=== PATIENT | male | born 1955 | race Caucasian/White ===

== ENCOUNTER 2018-09-17 09:15 | Inpatient (IN) | payer SELFPAY ==
[~2018-09-17] VITALS: Ht 182.9 cm; Wt 97.5 kg
[2018-09-17] VITALS (7 sets, daily range): BP systolic 102–120; BP diastolic 68–76
[2018-09-17] MEDS ORDERED: SODIUM CHLORIDE 0.9% 1000ML 1,000 ML IV STA (09:39)
[2018-09-17] MEDS ORDERED: METHYLPREDNISOLONE SOD SUCC 125 MG/2ML VIAL IV ONE (09:45)
[2018-09-17] MEDS ORDERED: ALBUTEROL/IPRATROPIUM 3 ML NEB NEB ONE (09:45)
[2018-09-17 10:02] LABS: BASOPHILS % 0.4 % (0.0-1.0); HEMOGLOBIN 11.9 g/dL (14.0-18.0); LYMPHOCYTES # (AUTO) 0.3 (1.0-3.2); LYMPHOCYTES % 3.6 % (18.0-39.1); MEAN CORPUSCULAR HEMOGLOBIN 36.4 pg (28-32); MEAN CORPUSCULAR HGB CONC 33.1 g/dL (31-35); MEAN CORPUSCULAR VOLUME 110.1 fL (81-99); MONOCYTES # (AUTO) 0.9 (0.2-0.8); MONOCYTES % 10.7 % (4.4-11.3); NEUTROPHILS # (AUTO) 7.1 (2.1-6.9); NEUTROPHILS % 84.8 % (38.7-80.0); PLATELET COUNT 101 x10e3/uL (140-360); RED BLOOD COUNT 3.27 x10e6/uL (4.3-5.7); RED CELL DISTRIBUTION WIDTH 14.1 % (11.7-14.4)
[2018-09-17 10:10] LABS: INR 1.08
[2018-09-17 10:11] LABS: PARTIAL THROMBOPLASTIN TIME 35.6 seconds (23.8-35.5)
[2018-09-17 10:23] LABS: ALBUMIN 2.8 g/dL (3.5-5.0); ALBUMIN/GLOBULIN RATIO 0.8 (0.8-2.0); CALCIUM 7.7 mg/dL (8.4-10.2); CREATININE, SERUM 1.31 mg/dL (0.72-1.25)
[2018-09-17 10:28] LABS: B-TYPE NATRIURETIC PEPTIDE2 2926.2 pg/mL (0-100)
[2018-09-17 10:31] LABS: CREATINE KINASE MB 4.8 ng/mL (0-5.0)
--- NOTE | 2018-09-17 10:35 | NUR ---
Elizabeth flores in ED - 09/17/18 at 1106 by EN ORDER FOR VLUID RESCUSITATION GIVEN BUT PT IN XRAY SO FLUID ON HOLD UNTIL HE IS BACK
--- NOTE | 2018-09-17 10:35 | NUR ---
ORDER FOR FLUID RESUSCITATION GIVEN BUT PT IN XRAY. WILL START WHEN HE IS BACK.
--- NOTE | 2018-09-17 10:40 | NUR ---
DR PALM CANCELLED FLUID RESUSCITATION DUE TO LEG EDEMA
--- NOTE | 2018-09-17 10:49 | NUR ---
ORDER FOR ECHO ORDERED
--- NOTE | 2018-09-17 10:55 | NUR ---
PT BACK FROM [facility] HERE TO PERFORM THE ECHOCARDIOGRAM.
[2018-09-17] MEDS ORDERED: AZITHROMYCIN 500MG/NS 250 ML 250 ML IV STA (11:09)
[2018-09-17] MEDS ORDERED: ACETAMINOPHEN 325 MG TAB PO ONE (11:15)
--- NOTE | 2018-09-17 11:21 | Diagnostic Imaging Report ---
Frontal and lateral views of the chest. HISTORY: Shortness of breath, trouble breathing, congestion COMPARISON: None available. DISCUSSION: Overlying monitoring leads. Lungs: Increased peribronchial interstitial markings, most notably of the central and lower lungs. No evidence of a consolidative pneumonia or pulmonary alveolar edema. Pleura: No pleural effusion or pneumothorax. Heart and mediastinum: The cardiomediastinal silhouette appears unremarkable. Bones: No acute osseous lesion. IMPRESSION: 1. Findings which can be seen in the setting of a nonspecific bronchitis. 2. No consolidative pneumonia. Signed by: Dr. Jose Maria Barrera D.O., M.M.M. on 09/17/2018 11:18 AM
[2018-09-17] MEDS: SODIUM CHLORIDE 0.9% 1000ML 1,000 ML IV SCH ×10 (11:45→15:26)
[2018-09-17] MEDS: CEFTRIAXONE SOD 1 GM/NS 50 ML 50 ML IV SCH (11:45)
[2018-09-17] MEDS ORDERED: AZITHROMYCIN 500MG/SOD CHL 0.9% 250ML BAG IV SCH (12:00)
[2018-09-17] MEDS ORDERED: ASPIRIN 81 MG CHEW TAB PO ONE (12:00)
[2018-09-17] MEDS: NICOTINE 21 MG/EA PATCH TOP SCH (12:15)
[2018-09-17] MEDS: OSELTAMIVIR PHOSPHATE 75 MG CAP PO SCH ×2 (12:15→20:55)
--- OUTSIDE RECORDS SUMMARY | 2018-09-17 12:17 | XMS REPORT ---
Author Author [facility] Address Unknown Phone Unavailable Care Team Providers Care Tax Services Manager Name Role Phone Zan PALM Unavailable Unavailable Problems This patient has no known problems. Allergies, Adverse Reactions, Alerts This patient has no known allergies or adverse reactions. Medications This patient has no known medications. Results Test Description Test Time Test Comments Text Results Atomic Results Result Comments CHEST 2 VIEWS 2018-09-17 11:16:00 [place] [id number] Patient Name: SHAN SANTOS MR #: [id number] : 1955 Age/Sex: 63/M Req #: [id number] Adm Physician: Ordered by: DAMIR PALM MD Report #: [id number] Location: ER Room/Bed: Procedure: [id number] DX/CHEST 2 VIEWS Exam Date: 09/17/18 Exam Time: 1040 REPORT STATUS: Signed Frontal and lateral views of the chest. HISTORY: Shor tness of breath, trouble breathing, congestion COMPARISON: None available. DISCUSSION: Overlying monitoring leads. Lungs: Increased peribronchial interstitial markings, most notably of the central and lower lungs. No evidence of a consolidative pneumonia or pulmonary alveolar edema. Pleura: No pleural effusion or pneumothorax. Heart and mediastinum: The cardiomediastinal silhouette appears unremarkable. Bones: No acute osseous lesion. IMPRESSION: 1. Findings which can be seen in the setting of a nonspecific bronchitis. 2. No consolidative pneumonia. Signed by: Dr. Omid Barrera D.O., M.M.M. on 09/17/2018 11:18 AM Dictated By: OMID BARRERA DO Transcribed By: SHERRIE on 09/17/181117 COPY TO: DAMIR PALM MD
--- NOTE | 2018-09-17 12:30 | NUR ---
EATING CARDIAC DIET
[2018-09-17] MEDS: ALBUTEROL SULF 0.083% NEB SOLN 3 ML NEB NEB SCH ×3 (13:00→19:35)
[2018-09-17] MEDS: IPRATROPIUM BROMIDE 0.02% 2.5 ML NEB NEB SCH ×2 (13:00→19:35)
--- NOTE | 2018-09-17 13:40 | NUR ---
Patient arrived from ER in wheel chair, he is alert and oriented verbalizing needs, denies pain, no s/s of distress, steady gait able to transfer from Wheel chair to bed. Placed on telemetry, and continuous pulse oximetry, sating 95-98% on room air, blood pressure 108/68, HR 90 respirations 20. Reports he takes blood pressure medication will bring medications bottles tomorrow. Oriented to room and use of call light verbalized understanding to use call light when needing assistance. Belongings and call light within reach, bed in low position with breaks in place. Declined bed alarm.
--- NOTE | 2018-09-17 15:49 | Consultation ---
DATE OF CONSULTATION: September 17, 2018 CARDIOLOGY CONSULTATION REASON FOR CONSULTATION: Heart failure. HISTORY OF PRESENT ILLNESS: This is a 63-year-old man with a history of tobacco use, hypertension, hyperlipidemia, and chronic obstructive pulmonary disease, who presented to the emergency department with progressive worsening shortness of breath. The patient states that his shortness of breath has been present for approximately 3 weeks, progressively worsening associated with cough and exertional dyspnea. He denies any orthopnea or paroxysmal nocturnal dyspnea. In addition to this, he denies any lower extremity swelling. The patient does report chest discomfort that is exacerbated with coughing and deep breathing. On arrival here, the patient was noted to have pneumonia, and he was positive for the flu. Troponin value was elevated at 0.869. REVIEW OF SYSTEMS: A 12-point review of systems was conducted, and is negative other than was mentioned in the HPI. PAST MEDICAL HISTORY: Hypertension, hyperlipidemia, tobacco use, chronic obstructive pulmonary disease. PAST SURGICAL HISTORY: None reported recently. PAST FAMILY HISTORY: No premature coronary artery disease or sudden cardiac . SOCIAL HISTORY: Current tobacco use. Denies any significant alcohol use or illicit drug use. ALLERGIES: NO KNOWN DRUG ALLERGIES. MEDICATIONS: See medication reconciliation form. PHYSICAL EXAMINATION VITALS: Temperature is 98.4, heart rate is 90, respirations are 24, blood pressure is 103/62, and oxygen saturation 98% on 3 L nasal cannula. GENERAL: He is a well-appearing man seated at bedside. HEENT: Head is normocephalic and atraumatic. Eyes: Extraocular movements are intact. Conjunctivae are clear. NECK: No JVD. No bruits. CARDIOVASCULAR: Regular rate and rhythm. Mild systolic murmur heard best at the right sternal border. LUNGS: Scattered wheezes throughout lung العلي. ABDOMEN: Soft, nontender and nondistended. EXTREMITIES: No edema. VASCULAR: Two plus pulses. SKIN: Warm, dry and intact. LABORATORY DATA: Reviewed. Sodium 133, creatinine 1.3. Lactic acid 67.8. CK total is 280, CK-MB is normal at 4.8. Troponin is mildly elevated at 0.869. Positive for the flu. Chest x-ray shows nonspecific bronchitis. IMPRESSION 1. Elevated troponin. 2. Chronic obstructive pulmonary disease exacerbation. 3. Influenza with pneumonia. 4. Dkpti-bc-ojiopyn kidney disease. 5. Elevated brain natriuretic peptide. RECOMMENDATIONS: The patient presented with progressive worsening shortness of breath. This is likely related to his COPD and influenza with pneumonia. Continue infectious treatments per primary team. In regards to his elevated troponin, will continue to trend this and give the patient a dose of Lovenox for coverage. Will obtain a 2-D echocardiogram. Start aspirin and statin. No beta blockers at this point in time given active wheezing. Further recommendations to follow. Job#: [id number] KADE
--- NOTE | 2018-09-17 18:12 | History and Physical ---
HISTORY OF PRESENT ILLNESS: Patient is a 63-year-old male who denies any past medical condition. Came here with shortness of breath and cough and chest pain. Patient was found to have influenza A, COPD exacerbation, and elevated troponins and admitted to the hospital. Blood pressure is much better right now. REVIEW OF SYSTEMS CARDIOVASCULAR: He has some chest pain which was aggravated by cough. No palpitations. RESPIRATORY: He did have shortness of breath and cough which is much better right now. GASTROINTESTINAL: No nausea, no vomiting, no diarrhea. GENITOURINARY: No frequency, no dysuria. ALLERGIES: HE CLAIMS THAT HE IS NOT ALLERGIC TO ANY MEDICATIONS. SOCIAL HISTORY: He smokes and he drinks alcohol. PAST MEDICAL HISTORY: He denies any medical condition. PHYSICAL EXAMINATION VITAL SIGNS: The blood pressure is 93/62, temperature is 98 degrees, heart rate is 86 per minute, respiratory rate is 16 per minute, oxygen saturation 99%. On the BMP: Sodium 133, potassium 4.0, chloride 96, CO2 22, BUN 21, creatinine 1.31, glucose 109. On the CBC: White blood count 8.34, hemoglobin 11.9, hematocrit 36.0, platelet count 101,000. PT 16.0, INR 1.08, PTT is 35.6. AST 106, ALT 35, total bilirubin 1.2, alkaline phosphatase 90. Chest x-ray showed no evidence of any infiltrates. FINAL IMPRESSION 1. Influenza A bronchitis. 2. Hypotension which is resolving. 3. Chronic obstructive pulmonary disease exacerbation. 4. High troponin. 5. Acute renal failure. PLAN OF TREATMENT: Continue albuterol and Atrovent q.6 h., albuterol q.4 h., ceftriaxone 2 g IV daily, Zithromax 250 mg IV daily, Lovenox 70 mg subcutaneously twice a day. Continue normal saline at 125 mL an hour, nicotine patch 21 mg daily, and Tamiflu 75 mg twice a day and respiratory isolation. We ordered an echocardiogram which showed a good ejection fraction of 50% to 55%, no evidence of pericardial effusion, no evidence of severe valvular abnormality, mild MAC, trace tricuspid regurgitation. So, we are going to repeat a BMP tomorrow. Blood culture is already ordered. Dr. Winslow has been consulted from the cardiology point of view, Dr. Emmanuel from the infectious disease point of view. Continue the respiratory isolation. Job#: [id number] EV
--- NOTE | 2018-09-17 18:14 | History and Physical ---
ADDENDUM: Also, we are going to start him on aspirin 81 mg daily. We are going to avoid metoprolol because the blood pressure was very low. I am going to avoid Lipitor also because of elevated LFTs also. Cardiology will write further recommendations. Job#: [id number] EV
[2018-09-17] MEDS ORDERED: ATENOLOL50 MG PO (19:16)
[2018-09-17] MEDS: ENOXAPARIN INJ 80 MG/0.8 ML SYR SC SCH (20:55)
[2018-09-18] MEDS: IPRATROPIUM BROMIDE 0.02% 2.5 ML NEB NEB SCH ×5 (00:05→19:05)
[2018-09-18] MEDS: ALBUTEROL SULF 0.083% NEB SOLN 3 ML NEB NEB SCH ×8 (00:05→23:10)
[2018-09-18] MEDS: SODIUM CHLORIDE 0.9% 1000ML 1,000 ML IV SCH ×3 (03:22→11:54)
[2018-09-18 04:25] VITALS: BP 114/66
[2018-09-18 04:56] LABS: HEMOGLOBIN 11.1 g/dL (14.0-18.0); LYMPHOCYTES # (AUTO) 0.2 (1.0-3.2); LYMPHOCYTES % 5.4 % (18.0-39.1); MEAN CORPUSCULAR HGB CONC 33.6 g/dL (31-35); MONOCYTES # (AUTO) 0.2 (0.2-0.8); MONOCYTES % 5.6 % (4.4-11.3); NEUTROPHILS # (AUTO) 3.6 (2.1-6.9); NEUTROPHILS % 88.8 % (38.7-80.0); PLATELET COUNT 69 x10e3/uL (140-360); RED BLOOD COUNT 3.08 x10e6/uL (4.3-5.7); RED CELL DISTRIBUTION WIDTH 14.2 % (11.7-14.4)
[2018-09-18 04:57] LABS: MEAN CORPUSCULAR VOLUME 107.1 fL (81-99)
[2018-09-18 05:15] LABS: ALANINE AMINOTRANSFERASE 29 IU/L (0-55); ALBUMIN 2.4 g/dL (3.5-5.0); ALBUMIN/GLOBULIN RATIO 0.7 (0.8-2.0); ALKALINE PHOSPHATASE 71 IU/L (40-150); ANION GAP 13.6 mmol/L (8-16); BLOOD UREA NITROGEN 25 mg/dL (7-26); BUN/CREATININE RATIO 24 (6-25); CARBON DIOXIDE 21 mmol/L (22-29); CHLORIDE 101 mmol/L (98-107); CREATININE, SERUM 1.05 mg/dL (0.72-1.25); EST GLOMERULAR FILTRATION RATE > 60 ML/MIN (60-); GLUCOSE 159 mg/dL (74-118); POTASSIUM 3.6 mmol/L (3.5-5.1); SODIUM 132 mmol/L (136-145)
[2018-09-18 05:31] LABS: CREATINE KINASE MB 11.9 ng/mL (0-5.0)
--- NOTE | 2018-09-18 05:32 | Diagnostic Imaging Report ---
EXAM: CHEST SINGLE (PORTABLE), AP 1 view INDICATION: Pneumonia COMPARISON: PA and lateral view of the chest September 17, 2018 FINDINGS: LINES/TUBES: None LUNGS: Stable bronchial thickening. No consolidations. PLEURA: No effusions or pneumothorax. HEART AND MEDIASTINUM: Normal size and contour. BONES AND SOFT TISSUES: Deformity of the proximal left humerus likely from an old fracture. IMPRESSION: Stable bronchial thickening. No consolidations. Signed by: Dr. Ashley Lennon M.D. on 09/18/2018 5:29 AM
--- NOTE | 2018-09-18 07:01 | NUR ---
Handoff report from warehouse worker 2nd shift nurse, patient in bed supine sleeping respirations 18 no s/s of distress. Patient resting comfortably, IV NS infusing @125cc/hr. Bed in low position, breaks on, belongings and call light within reach.
[2018-09-18 07:40] VITALS: BP 134/75
[2018-09-18] MEDS: OSELTAMIVIR PHOSPHATE 75 MG CAP PO SCH ×2 (08:00→20:40)
[2018-09-18] MEDS: ASPIRIN 325 MG TAB PO SCH (08:01)
[2018-09-18] MEDS: ENOXAPARIN INJ 80 MG/0.8 ML SYR SC SCH ×2 (08:02→20:40)
[2018-09-18] MEDS ORDERED: AZITHROMYCIN 500MG/NS 250 ML 250 ML IV SCH (09:00)
[2018-09-18 10:37] VITALS: BP 134/75
[2018-09-18] MEDS: NICOTINE 21 MG/EA PATCH TOP SCH (11:54)
[2018-09-18] MEDS: CEFTRIAXONE SOD 1 GM/NS 50 ML 50 ML IV SCH (11:54)
[2018-09-18 12:06] VITALS: BP 121/74
--- NOTE | 2018-09-18 12:34 | NUR ---
Called Dr. Paul, made him aware patient had a tachycardiac episode HR143, received orders to print strip and place in chart.
[2018-09-18] MEDS ORDERED: CLOPIDOGREL BISULFATE 75 MG TAB PO NR (12:45)
--- NOTE | 2018-09-18 13:13 | Progress Note ---
DATE: September 18, 2018 CARDIOLOGY PROGRESS NOTE SUBJECTIVE: The patient still reports vague chest pain that is worsened with cough and deep inspiration, described as a dull ache. Still reports shortness of breath and cough. OBJECTIVE VITAL SIGNS: Temperature is 98.1, heart rate is 94, respirations are 20, blood pressure is 121/74, oxygen saturation 98% on room air. GENERAL: He is a well-appearing, middle-aged man lying comfortably in bed. HEENT: Head is normocephalic and atraumatic. Eyes: Extraocular muscles are intact. NECK: No JVD. CARDIOVASCULAR: Regular rate and rhythm with ectopy. LUNGS: Scattered rhonchi with expiratory wheezing. ABDOMEN: Soft, nontender. EXTREMITIES: No edema. VASCULAR: Diminished pulses. SKIN: Warm, dry and intact. CARDIOVASCULAR MEDICATIONS: Reviewed. LABORATORY DATA: Troponin I 0.825, CK-MB is 11.9, CK total is 266. Creatinine is 1.05. Sodium 132. Hemoglobin 11. MCV is 107. INR is 1. AST 89, ALT 29. TELEMETRY MONITORING: Sinus rhythm with premature ventricular complexes. IMPRESSION 1. Qgu-IQ-bhpbyhrxk myocardial infarction. 2. Chronic obstructive pulmonary disease exacerbation with pneumonia and influenza. 3. Cqzdn-xj-hgjvaia kidney disease, improved. 4. Abnormal liver function test. 5. Microcytic anemia. 6. Hyponatremia. RECOMMENDATIONS: Will continue current cardiovascular medications consisting of Lovenox and aspirin. Will add statin today in addition to Plavix. Will continue to monitor his daily labs. Continue infectious treatments per primary and infectious disease teams. Patient will need coronary angiography prior to discharge given his elevated cardiac enzymes. However, will defer until sepsis has been controlled. Continue to monitor closely on telemetry. Job#: [id number]
[2018-09-18] MEDS: AZITHROMYCIN 500MG/NS 250 ML 250 ML IV SCH (13:16)
[2018-09-18 13:59] LABS: CREATINE KINASE MB 9.4 ng/mL (0-5.0)
[2018-09-18 16:00] VITALS: BP 124/60
--- NOTE | 2018-09-18 16:42 | Consultation ---
DATE OF CONSULTATION: September 18, 2018 REASON FOR CONSULTATION: Sepsis and pneumonia. This patient who is a 63-year-old gentleman with a history of smoking and history of drinking. He said he smokes 2 packs a day. He drinks alcohol. The patient has apparently been sick for more than a month. He does have underlying history of hypertension, hyperlipidemia and COPD. Comes to the emergency room with shortness of breath, which is getting worse the last month. For the last 3 days, it is worse with coughing up thick sputum. The patient came to the emergency room where he was admitted. PAST MEDICAL HISTORY: Hypertension, hyperlipidemia, chronic back pain, COPD. PAST SURGICAL HISTORY: Back surgery. ALLERGIES: NKA. SOCIAL HISTORY: He smokes 2 packs a day for years. REVIEW OF SYSTEMS HEENT: There is no headache, visual changes or hearing changes. GI: There is no nausea. No vomiting. No diarrhea. CARDIAC: There is no arrhythmia. No seizure activity. LABORATORY DATA: White count 8.34, hemoglobin 11.9 and platelets 101,000. Sodium 132, potassium 3.6, creatinine 1.05. His blood cultures are still pending. Chest x-ray was done and showed bronchial thickening. No consolidation. The patient is currently on azithromycin and ceftriaxone. PHYSICAL EXAMINATION GENERAL: He is currently alert and oriented. Does not seem to be in acute distress. VITALS: Stable. Currently afebrile. No fever since admission. HEENT: Not icteric. NECK: Supple. CHEST: Few rhonchi at the bases and coarse. CORE: S1 and S2. No murmur. ABDOMEN: Soft. Bowel sounds present. EXTREMITIES: Lower extremity edema. IMPRESSION: Bronchitis, probably pneumonia. Agree with Rocephin and azithromycin. Agree with blood cultures. Will follow with you. Await blood cultures. Job#: [id number] NC
--- NOTE | 2018-09-18 19:30 | NUR ---
patient recieved awake, alert, lying quietly in bed. vss. no c/o pain noted. pm assessment complete. noted at the bedside. patient/ instructed to call for assistance when needed.
[2018-09-18 20:00] VITALS: BP_SYST 115; BP_SYST 132; BP_DIAS 60; BP_DIAS 89
--- NOTE | 2018-09-18 20:23 | Progress Note ---
DATE: September 18, 2018 INTERNAL MEDICINE PROGRESS NOTE SUBJECTIVE: Patient doing well. No significant complaint. PHYSICAL EXAMINATION: VITAL SIGNS: Blood pressure /74, temperature 98.1, heart rate 102 per minute, respiratory rate 20 per minute, oxygen saturation is 98%. HEART: Shows regular rhythm. Normal S1 and S2 sounds. LUNGS: Clear bilaterally. ABDOMEN: Soft. LABS: On the blood work, we have BMP: Sodium 132, potassium 3.6, chloride 101, CO2 21, BUN 25, creatinine 1.05, glucose 159. On the CBC: White blood count 4.09, hemoglobin 11.1, hematocrit 33.0, platelet count 61,000. PT 15.0, INR 1.08, PTT 35.6. AST 89, ALT 29, total bilirubin 0.7, alkaline phosphatase of 71. Blood cultures are negative. Sputum culture showed no evidence of any growth so far. On the x-ray, the last x-ray showed bronchial thickening, no consolidation. FINAL IMPRESSION: 1. Flu. 2. Hypotension. 3. Chronic obstructive pulmonary disease exacerbation. 4. Elevated troponin. 5. Acute renal insufficiency. PLAN OF TREATMENT: We are going to continue respiratory isolation. Continue albuterol and Atrovent q.4-6h., ceftriaxone 2 g IV once a day, Zithromax 250 mg IV once a day, Lovenox 70 mg subcutaneously twice a day. We are going to discontinue the IV fluids. Continue aspirin 325 mg daily, nicotine 21 mg daily, Plavix 75 mg daily. Continue Tamiflu 75 mg twice a day and Lipitor 40 mg daily. We are going to put a hold on the Lipitor because of elevated LFTs. Job#: [id number]
[2018-09-18] MEDS ORDERED: ATORVASTATIN 40 MG TAB PO SCH (21:00)
[2018-09-18] MEDS ORDERED: ATORVASTATIN 20 MG TAB PO SCH (21:00)
[2018-09-19] VITALS (9 sets, daily range): BP systolic 115–145; BP diastolic 76–98
--- NOTE | 2018-09-19 | NUR ---
patient bp 145/97 hr 110 patient c/o cough and sore throat. notified and new orders noted.
[2018-09-19] MEDS ORDERED: CHLORASEPTIC SPRAY 177 ML BTL MM PRN (00:15)
[2018-09-19] MEDS: ATENOLOL 50 MG TAB PO SCH ×2 (00:23→10:30)
[2018-09-19] MEDS: GUAIFENESIN 200 MG/10 ML UDC PO PRN ×2 (00:30→13:32)
[2018-09-19] MEDS: ALBUTEROL SULF 0.083% NEB SOLN 3 ML NEB NEB SCH ×6 (03:45→23:05)
[2018-09-19] MEDS: IPRATROPIUM BROMIDE 0.02% 2.5 ML NEB NEB SCH ×4 (03:45→19:00)
--- NOTE | 2018-09-19 04:00 | NUR ---
patient appears to be resting quietly. no further c/o cough noted. vss. patient denies pain at this time.
[2018-09-19 05:07] LABS: ANION GAP 11.1 mmol/L (8-16); BLOOD UREA NITROGEN 21 mg/dL (7-26); BUN/CREATININE RATIO 28 (6-25); CARBON DIOXIDE 24 mmol/L (22-29); CHLORIDE 107 mmol/L (98-107); CREATININE, SERUM 0.76 mg/dL (0.72-1.25); EST GLOMERULAR FILTRATION RATE > 60 ML/MIN (60-); GLUCOSE 103 mg/dL (74-118); POTASSIUM 4.1 mmol/L (3.5-5.1); SODIUM 138 mmol/L (136-145)
[2018-09-19 08:35] LABS: BASOPHILS % 0.2 % (0.0-1.0); HEMATOCRIT 34.5 % (38.2-49.6); HEMOGLOBIN 11.4 g/dL (14.0-18.0); LYMPHOCYTES # (AUTO) 0.4 (1.0-3.2); LYMPHOCYTES % 10.9 % (18.0-39.1); MEAN CORPUSCULAR HEMOGLOBIN 36.2 pg (28-32); MEAN CORPUSCULAR VOLUME 109.5 fL (81-99); MONOCYTES # (AUTO) 0.3 (0.2-0.8); MONOCYTES % 8.2 % (4.4-11.3); NEUTROPHILS # (AUTO) 3.2 (2.1-6.9); NEUTROPHILS % 80.2 % (38.7-80.0); PLATELET COUNT 79 x10e3/uL (140-360); RED BLOOD COUNT 3.15 x10e6/uL (4.3-5.7); RED CELL DISTRIBUTION WIDTH 14.5 % (11.7-14.4)
[2018-09-19] MEDS: ENOXAPARIN INJ 80 MG/0.8 ML SYR SC SCH ×2 (09:00→10:22)
[2018-09-19] MEDS: CLOPIDOGREL BISULFATE 75 MG TAB PO SCH ×2 (09:00→10:22)
[2018-09-19] MEDS: ASPIRIN 325 MG TAB PO SCH ×2 (09:00→10:22)
--- NOTE | 2018-09-19 09:32 | NUR ---
GAVE PACKET OF INFORMATION WITH COMMUNITY RESOURCES FOR ASSISTANCE WITH LOW TO NO INCOME TO PATIENT. RESOURCES THAT PATIENT MAY BE ABLE TO FOLLOW UP UPON DISCHARGE. PT EDUCATED ON EACH RESOURCE AND UNDERSTANDING HOW TO FOLLOW UP TO SEE IF QUALIFIED FOR EACH RESOURCE.
[2018-09-19] MEDS: OSELTAMIVIR PHOSPHATE 75 MG CAP PO SCH ×2 (10:22→20:35)
--- NOTE | 2018-09-19 11:28 | NUR ---
Pt reports black tarry diarrhea that started today. Denies taking iron supplements or Pepto Bismol, denies dizziness. States that last BM was about 0900 today, denies foul odor. No lingering GIB odor noted in bathroom. AM ASA, Plavix, and Lovenox held. MD Saul paged, awaiting response.
--- NOTE | 2018-09-19 11:46 | NUR ---
Cardiology paged to inform of potential GIB and held meds. MD Saul returned page, new orders rec'd.
--- NOTE | 2018-09-19 12:12 | NUR ---
MD Radford at , stated that he wanted to take pt to prestressed concrete laborer but will hold in case of GIB. Notified that night MD continued home atenolol and pt is still wheezing. New orders rec'd. Pt verbalized understanding of defecating in collector of port, staying NPO until CT A&P with contrast, and to report all varianges. Pt reports aching 2/10 in center of chest and ribs and throat, occurs when coughing. MD Radford aware.
[2018-09-19] MEDS ORDERED: MORPHINE SULFATE 2 MG/ML SYR 1ML IV PRN (12:15)
[2018-09-19] MEDS ORDERED: NITROGLYCERIN 0.4 MG SUBL SL PRN (12:15)
[2018-09-19] MEDS ORDERED: PANTOPRAZOLE 40 MG 10ML VIAL IV STA (12:16)
[2018-09-19] MEDS ORDERED: MORPHINE SULFATE INJ 4 MG/ML INJ 1ML IV PRN (12:30)
[2018-09-19 12:45] LABS: OCCULT BLOOD STOOL POSITIVE (NEGATIVE)
[2018-09-19] MEDS: AZITHROMYCIN 500MG/NS 250 ML 250 ML IV SCH (13:32)
[2018-09-19] MEDS: CEFTRIAXONE SOD 1 GM/NS 50 ML 50 ML IV SCH (13:32)
--- NOTE | 2018-09-19 13:40 | Progress Note ---
DATE: September 19, 2018 CARDIOLOGY PROGRESS NOTE SUBJECTIVE: Patient had a black tarry stool this morning. No bright red blood per rectum. No prior gastrointestinal bleeding. Anticoagulants and antiplatelets held. His chest pain has improved. Shortness of breath and wheezing has persisted. OBJECTIVE VITAL SIGNS: Temperature 97.9, heart rate is 88, respirations are 18, blood pressure is 138/80, and oxygen saturation is 100% on room air. GENERAL: He is well-appearing and in no apparent distress. CARDIOVASCULAR: Regular rate and rhythm. LUNGS: Expiratory wheezing bilaterally. ABDOMEN: Soft and nontender. EXTREMITIES: No edema. VASCULAR: Two plus pulses. CARDIOVASCULAR MEDICATIONS: Reviewed. LABORATORY VALUES: Hemoglobin 11.4 and platelets 79,000. Creatinine 0.76, AST 89, ALT 29. Troponin I is 0.693. CK-MB is 9.4. Creatinine kinase is 245. INR is 1.08. Stool occult blood is positive. Telemetry monitoring revealed normal sinus rhythm with sinus tachycardia and premature atrial complexes. IMPRESSION 1. Non-ST elevation myocardial infarction. 2. Chronic obstructive pulmonary disease exacerbation with pneumonia and influenza. 3. Abnormal liver function tests. 4. Microcytic anemia with thrombocytopenia. 5. Gastrointestinal bleeding. RECOMMENDATIONS: Reasonable to hold anticoagulants and antiplatelets at this point in time. Recommend gastrointestinal consultation. Continue infectious treatment per primary and infectious disease teams. The patient's chest pain has improved. He likely will need cardiac catheterization. However, this can be performed once his infectious issues have resolved and his GI bleeding has been evaluated. Job#: [id number] KADE
[2018-09-19 15:08] LABS: C DIFFICILE TOXIN A&B AMP PROB NEGATIVE (NEGATIVE)
[2018-09-19] MEDS ORDERED: SODIUM CHLORIDE 0.9% 50ML 50 ML ONE (16:00)
--- NOTE | 2018-09-19 16:00 | NUR ---
Attempted to reach MD Delores Marcos via PACU, cell phone, and paging service, no answers
[2018-09-19] MEDS ORDERED: IOPAMIDOL 370 MG/ML 200 ML INFUS..BTL INJ ONE (16:01)
--- NOTE | 2018-09-19 16:04 | Diagnostic Imaging Report ---
EXAM: CT Abdomen and Pelvis WITH contrast INDICATION: Abdominal Pain COMPARISON: None. TECHNIQUE: Abdomen and pelvis were scanned utilizing a multidetector helical scanner from the lung base to the pubic symphysis after administration of IV contrast. Coronal and sagittal reformations were obtained. Routine protocol was performed. Scan was performed when during portal venous phase. IV CONTRAST: 100 cc of Isovue 370 ORAL CONTRAST: Water COMPLICATIONS: None RADIATION DOSE: Total DLP: 657.4 mGy*cm CTDIvol has been reviewed. It is below the limits set by the Radiation Protocol Committee (RPC). Dose modulation, iterative reconstruction, and/or weight based adjustment of the mA/kV was utilized to reduce the radiation dose to as low as reasonably achievable. FINDINGS: LINES and TUBES: None. LOWER THORAX: There is a small right and trace left pleural effusion. Patchy consolidative opacities are present at the right lung base. Mild interlobular septal thickening at the lung bases. Centrilobular emphysematous changes of the lungs. Coronary atherosclerosis. HEPATOBILIARY: Diffuse fatty liver. No evidence of focal lesion. No biliary ductal dilation. The gallbladder is unremarkable. SPLEEN: No splenomegaly. PANCREAS: No focal masses or ductal dilatation. ADRENALS: No adrenal nodules KIDNEYS/URETERS: The left kidney is absent. No evidence of hydronephrosis, solid mass, or stone. GI TRACT: No evidence of wall thickening or distension. Appendix is not clearly identified. There is however no fat stranding or adenopathy in the right lower quadrant to suggest appendicitis. PELVIC ORGANS/BLADDER: Unremarkable. LYMPH NODES: No lymphadenopathy. VESSELS: There is a bilobed infrarenal abdominal aortic aneurysm, which measures up to 5.1 x 5.1 cm superiorly and inferiorly at the aortic bifurcation, it measures up to 4.2 x 4.0 cm. The aneurysm contains smooth mural thrombus. There is ectasia of the bilateral common iliac arteries, measuring up to 1.5 cm on the right and 1.4 cm on the left There is extensive atherosclerotic disease in the aorta and major arterial branches. There is a replaced right hepatic artery off the superior mesenteric artery. Extensive atherosclerotic calcifications of the bilateral common femoral arteries with mild stenoses. PERITONEUM / RETROPERITONEUM: Simple appearing right inferior pole renal cyst, measuring up to 6.7 cm. Small volume ascites. No free air. BONES AND SOFT TISSUES: No acute bony findings. Degenerative changes of the lower lumbar spine. CONCLUSION: Bilobed infrarenal abdominal aortic aneurysm, measuring up to 5.1 cm. Suggest follow-up CTA in 3-6 months and surgical consultation. Small right and trace left pleural effusion with patchy consolidation lower lobes which could represent atelectasis or pneumonia in the appropriate clinical context. Small volume ascites. Diffuse fatty liver. Absent left kidney. Signed by: Dr. Mars Brar MD on 09/19/2018 4:01 PM
--- NOTE | 2018-09-19 16:14 | NUR ---
CASE MANAGEMENT INITIAL ASSESSMENT Business Transformation Analyst to bedside to discuss plan of care with patient/family. CM/SW role and care transitions discussed. Anticipated discharge plan discussed along with duration of care. CM/SW discussed patients right to make decisions in care. CM/SW work hours given. Patient lives: Admit/Transfer: ER POA/Emergency contact: ANTONIO PENA, , Current/Previous Home Health: NONE PCP/Follow-up Care: NO PCP Current/Previous DME: NONE Other Services: NONE Employment Status: UNEMPOLOYED Areas of Concerns: F/U WITH OP MEDICAL RESOURCES Referral Needs: SELF PAY INFORMATION PACKET GIVEN TO PT Education Needs: EDUCATED PT ON [facility] WEB SITE FOR MEDICATIONS IMM/CASTREJON given and signed (if applicable): N/A Goal for discharge:DC HOME SOON POSSIBLE CM/SW left business card at the bedside with contact information. Name and number was also written on the patients whiteboard. Patient verbalized understanding of discussion. CM will follow-up with ongoing discharge and transition of care needs.
[2018-09-19] MEDS: NICOTINE 21 MG/EA PATCH TOP SCH (18:26)
--- NOTE | 2018-09-19 19:15 | NUR ---
Report received form AM RN Sanket,walking round done. Patient received comfortably resting on the bed. Denied pain and no SOB. Family in the room. Patient instructed to call for help as needed,verbalized and understand. Bed in lower position,locked. Call carranza within reach. Will continue to monitor.
--- NOTE | 2018-09-19 19:52 | Progress Note ---
DATE: September 19, 2018 INTERNAL MEDICINE PROGRESS NOTE SUBJECTIVE: Patient has been complaining of diarrhea, which he had apparently for a very long time and also blood in the stools. PHYSICAL EXAMINATION: VITAL SIGNS: Blood pressure 142/86, temperature 98.1, heart rate 78 per minute, respiratory rate 18 per minute, oxygen saturation is 98%. HEART: Shows regular rhythm. Normal S1 and S2 sounds. LUNGS: Clear bilaterally. ABDOMEN: Soft. EXTREMITIES: Shows no evidence of cyanosis, edema, or trauma. FINAL IMPRESSION: 1. Flu, bronchitis. 2. Questionable pneumonia. 3. Pancytopenia. 4. Diarrhea. 5. Blood in the stools. 6. Hypotension, which is completely resolved. 7. Chronic obstructive pulmonary disease exacerbation. 8. Elevated troponin. 9. Acute renal failure. PLAN OF TREATMENT: Continue with albuterol and Atrovent q.4h. and q.6h. as needed for shortness of breath, ceftriaxone 2 g IV daily, Zithromax 250 mg IV daily, guaifenesin 200 mg q.4h. as needed for cough, nicotine patch 21 mg daily. Nitroglycerin sublingual 0.5 mg every 5 minutes p.r.n. for chest pain, no more than 3 tablets. Continue Tamiflu 75 mg twice a day. Respiratory isolation. Continue Protonix 40 mg daily, morphine 2 mg IV q.4h. as needed. Stool for C. difficile has been sent. Stool guaiac has been positive. We are going to order H and H q.12h. x4. Dr. Lul Marcos has been consulted from the gastroenterology point of view also. Job#: [id number]
--- NOTE | 2018-09-19 20:40 | NUR ---
Assisted patient to connected SCD's and bed pump at this time.
[2018-09-19] MEDS ORDERED: PANTOPRAZOLE 40 MG 10ML VIAL IV SCH (21:00)
[2018-09-20] VITALS (7 sets, daily range): BP systolic 134–149; BP diastolic 74–97
[2018-09-20] MEDS ORDERED: OCTREOTIDE ACETATE 0.05 MG/ML AMP IV STA (00:58)
[2018-09-20] MEDS ORDERED: OCTREOTIDE ACETATE 600 MCG in SODIUM CHLORIDE 0.9% 250ML 300 ML IV SCH (00:58)
[2018-09-20] MEDS ORDERED: PANTOPRAZOLE 40 MG 10ML VIAL IV STA (00:58)
[2018-09-20] MEDS ORDERED: PANTOPRAZOL 40MG/SOD CHL 0.9% 250 ML IV SCH (01:00)
--- NOTE | 2018-09-20 01:04 | NUR ---
Dr. Delores Marcos round the patient room at this time.
[2018-09-20] MEDS ORDERED: FOLIC ACID 5 MG/ML VIAL ONE (01:20)
[2018-09-20] MEDS ORDERED: THIAMINE HCL INJ 100 MG/ML 2ML VIAL ONE (01:20)
[2018-09-20] MEDS ORDERED: MULTIVITAMINS INJECTION ONE (01:20)
[2018-09-20] MEDS ORDERED: SODIUM CHLORIDE 0.9% 1000ML 1,000 ML ONE (01:21)
[2018-09-20] MEDS ORDERED: PANTOPRAZOL 40MG/SOD CHL 0.9% 50 ML IV ONE (01:22)
[2018-09-20] MEDS ORDERED: OCTREOTIDE ACETATE 1 ML ONE ×2 (01:24→23:44)
[2018-09-20] MEDS ORDERED: SODIUM CHLORIDE 0.9% 250ML 250 ML ONE ×2 (01:25→23:44)
[2018-09-20] MEDS ORDERED: PANTOPRAZOLE 40 MG 10ML VIAL ONE (01:32)
[2018-09-20] MEDS: OCTREOTIDE ACETATE 500 MCG in SODIUM CHLORIDE 0.9% 250ML 249 ML IV SCH ×2 (02:15→15:13)
[2018-09-20] MEDS: MULTIVITAMINS- 12 INJECTION 10 ML, FOLIC ACID MDV 5 MG, THIAMINE HCL INJ 100 MG in SODI... IV SCH ×2 (02:15→21:46)
[2018-09-20] MEDS: PANTOPRAZOLE INJ 40 MG in SODIUM CHLORIDE 0.9% 50ML 50 ML IV SCH ×5 (02:30→23:25)
[2018-09-20] MEDS: IPRATROPIUM BROMIDE 0.02% 2.5 ML NEB NEB SCH ×4 (02:55→19:00)
[2018-09-20] MEDS: ALBUTEROL SULF 0.083% NEB SOLN 3 ML NEB NEB SCH ×6 (02:55→22:50)
[2018-09-20 05:13] LABS: BASOPHILS % 0.4 % (0.0-1.0); EOSINOPHILS % 0.8 % (0.0-6.0); HEMATOCRIT 34.2 % (38.2-49.6); HEMOGLOBIN 11.4 g/dL (14.0-18.0); LYMPHOCYTES # (AUTO) 0.6 (1.0-3.2); LYMPHOCYTES % 22.2 % (18.0-39.1); MEAN CORPUSCULAR HEMOGLOBIN 36.2 pg (28-32); MEAN CORPUSCULAR HGB CONC 33.3 g/dL (31-35); MEAN CORPUSCULAR VOLUME 108.6 fL (81-99); MONOCYTES # (AUTO) 0.2 (0.2-0.8); MONOCYTES % 9.7 % (4.4-11.3); NEUTROPHILS # (AUTO) 1.7 (2.1-6.9); NEUTROPHILS % 66.5 % (38.7-80.0); PLATELET COUNT 77 x10e3/uL (140-360); RED BLOOD COUNT 3.15 x10e6/uL (4.3-5.7); RED CELL DISTRIBUTION WIDTH 14.4 % (11.7-14.4)
[2018-09-20 05:23] LABS: INR 1.04; PROTHROMBIN TIME 14.5 seconds (11.9-14.5)
[2018-09-20 05:36] LABS: ALANINE AMINOTRANSFERASE 55 IU/L (0-55); ALBUMIN 2.2 g/dL (3.5-5.0); ALBUMIN/GLOBULIN RATIO 0.7 (0.8-2.0); ALKALINE PHOSPHATASE 71 IU/L (40-150); ANION GAP 11.2 mmol/L (8-16); BLOOD UREA NITROGEN 15 mg/dL (7-26); BUN/CREATININE RATIO 18 (6-25); CALCIUM 7.5 mg/dL (8.4-10.2); CARBON DIOXIDE 25 mmol/L (22-29); CHLORIDE 103 mmol/L (98-107); CREATININE, SERUM 0.82 mg/dL (0.72-1.25); EST GLOMERULAR FILTRATION RATE > 60 ML/MIN (60-); GLUCOSE 116 mg/dL (74-118); POTASSIUM 4.2 mmol/L (3.5-5.1); SODIUM 135 mmol/L (136-145)
--- NOTE | 2018-09-20 07:08 | NUR ---
Report given to AM RN Sanket, walking round done.
[2018-09-20] MEDS ORDERED: PANTOPRAZOLE SOD 40 MG TABEC PO SCH (07:30)
[2018-09-20] MEDS: OSELTAMIVIR PHOSPHATE 75 MG CAP PO SCH ×2 (10:17→21:46)
--- NOTE | 2018-09-20 10:23 | NUR ---
WHEEZING WITH NON PRODUCTIVE COUGH NOTED, PATIENT DENIES PAIN AND SHORTNESS OF BREATH. MULTIPLE BRUISES TO THE ARMS, CALL LIGHT WITHIN EASY REACH, BED ALARM ON, PATIENT INSTRUCTED TO CALL FOR ASSISTANCE UPON GETTING OUT OF THE BED.
[2018-09-20] MEDS: NICOTINE 21 MG/EA PATCH TOP SCH (12:42)
[2018-09-20] MEDS: CEFTRIAXONE SOD 1 GM/NS 50 ML 50 ML IV SCH (12:42)
[2018-09-20] MEDS: AZITHROMYCIN 500MG/NS 250 ML 250 ML IV SCH (13:54)
--- NOTE | 2018-09-20 14:07 | NUR ---
PATIENT IS ASLEEP, HE'S EASY TO AROUSE. HE DENIES PAIN, CALL LIGHT WITHIN EASY REACH.
--- NOTE | 2018-09-20 15:00 | NUR ---
WAS NOTIFY BY TELEMETRY THAT THE PATIENT HAD SEVERAL BEATS OF V-TAC WITH A RATE OF 120. UPON ASSESSMENT THE PATIENT WAS COUGHING VIGOROUSLY, HE STATED "I'M FINE". ORAL FLUID ENCOURAGED, WILL MONITOR.
--- NOTE | 2018-09-20 17:47 | Progress Note ---
DATE: September 20, 2018 CARDIOLOGY PROGRESS NOTE SUBJECTIVE: Patient reports ongoing gastrointestinal bleeding. Denies any chest pain or shortness of breath. Reports cough. OBJECTIVE VITAL SIGNS: Temperature is 98.6, heart rate is 84, respirations are 18, blood pressure is 142/90, oxygen saturation 95% on room air. GENERAL: Well-appearing and no apparent stress. LUNGS: Clear to auscultation with scattered wheezes. ABDOMEN: Soft and nontender. CARDIOVASCULAR: Regular rate and rhythm. CARDIOVASCULAR MEDICATIONS: Reviewed. LABORATORY DATA: Reviewed. White blood cell count 2.4, hemoglobin 11.4 and platelets are 77,000. Creatinine is 0.82. Telemetry monitoring revealed normal sinus rhythm and premature atrial complexes. IMPRESSION 1. Ufd-HF-elpxheurt myocardial infarction. 2. Chronic obstructive pulmonary disease exacerbation. 3. Influenza. 4. Pneumonia. 5. Chronic alcohol use. 6. Pancytopenia. 7. Abnormal liver function tests. 8. Gastrointestinal bleeding. 9. Infrarenal abdominal aortic aneurysm. RECOMMENDATIONS: Continue current cardiovascular medications. Holding anticoagulation and antiplatelets due to his gastrointestinal bleeding. Further treatment per gastroenterology. Will restart anti-impulse therapy with beta blockers and afterload reduction for his is myocardial infarction and infrarenal abdominal aortic aneurysm. Continue to monitor closely on telemetry. Job#: [id number] KADE
--- NOTE | 2018-09-20 17:57 | Progress Note ---
DATE: September 20, 2018 INTERNAL MEDICINE PROGRESS NOTE SUBJECTIVE: Patient is doing better. He is still having some cough but before. PHYSICAL EXAM: VITAL SIGNS: Blood pressure 142/90. Temperature 98.6. Heart rate 84 per minute. Respiratory rate 22 per minute. Oxygen saturation 95%. HEART: Shows regular rhythm. Normal S1 and S2 sounds. LUNGS: Clear bilaterally. ABDOMEN: Soft. EXTREMITIES: Show no evidence of cyanosis, edema or trauma. On the BMP: Sodium 135, potassium 4.2, chloride 103, CO2 25, BUN 15, creatinine 0.82, glucose 116. On the CBC: White blood count 2.48, hemoglobin 11.4, hematocrit 34.2, platelet count 77,000. PT 14.5, INR 1.04, PTT 35.6. AST 157, ALT 55, total bilirubin 0.9, alkaline phosphatase 71. FINAL IMPRESSION: 1. Bronchitis secondary to influenza. 2. Possible pneumonia. 3. Pancytopenia. 4. Guaiac-positive stools. PLAN OF TREATMENT: We are going to discontinue the respiratory isolation if okay with Dr. Emmanuel, infectious diseases. We are going to continue with the Atrovent q.6 hours, albuterol q.4 hours as needed for shortness of breath. Continue with ceftriaxone also 1 gram IV once a day. Zithromax 500 mg IV once a day. Continue IV fluids at 50 mL an hour. Continue with Protonix drip 40 mg IV drip. Continue with guaifenesin 200 mg p.o. q.4 hours as needed for cough. Morphine 2 mg IV every 4 hours as needed for severe pain, which we are going to discontinue because he really does not need any morphine. Continue Tamiflu 75 mg twice a day. Continue with the rest of medication. Dr. Lul Marcos has been consulted from the gastroenterology point of view. We are going to wait for his recommendations. Job#: [id number] EV
[2018-09-20] MEDS: LISINOPRIL 10 MG TAB PO SCH (18:41)
--- NOTE | 2018-09-20 19:00 | NUR ---
Report received from AM RN Yanira. Patient received comfortably resting on his bed. Denied pain and no SOB. No respiratory distress noted. Respiration even and unlabored. Patient instructed to call for help as needed. Bed in lower position,locked. Call carranza within reach. Will continue to monitor.
[2018-09-21] VITALS (7 sets, daily range): BP systolic 141–150; BP diastolic 86–96
[2018-09-21] MEDS: PANTOPRAZOLE INJ 40 MG in SODIUM CHLORIDE 0.9% 50ML 50 ML IV SCH ×5 (01:35→20:36)
[2018-09-21] MEDS: OCTREOTIDE ACETATE 500 MCG in SODIUM CHLORIDE 0.9% 250ML 249 ML IV SCH ×3 (01:36→22:35)
[2018-09-21] MEDS: ALBUTEROL SULF 0.083% NEB SOLN 3 ML NEB NEB SCH ×6 (02:20→23:10)
[2018-09-21] MEDS: IPRATROPIUM BROMIDE 0.02% 2.5 ML NEB NEB SCH ×4 (02:20→19:40)
--- NOTE | 2018-09-21 04:27 | NUR ---
Patient complained back pain during cough. Called Dr Saul,ordered received at this time.
[2018-09-21] MEDS ORDERED: MORPHINE SULFATE INJ 4 MG/ML INJ 1ML ONE (04:57)
[2018-09-21 05:43] LABS: ALANINE AMINOTRANSFERASE 68 IU/L (0-55); ALBUMIN 2.2 g/dL (3.5-5.0); ALBUMIN/GLOBULIN RATIO 0.7 (0.8-2.0); ALKALINE PHOSPHATASE 77 IU/L (40-150); ANION GAP 8.7 mmol/L (8-16); BLOOD UREA NITROGEN 12 mg/dL (7-26); BUN/CREATININE RATIO 15 (6-25); CALCIUM 7.3 mg/dL (8.4-10.2); CARBON DIOXIDE 27 mmol/L (22-29); CHLORIDE 108 mmol/L (98-107); CREATININE, SERUM 0.79 mg/dL (0.72-1.25); EST GLOMERULAR FILTRATION RATE > 60 ML/MIN (60-); GLUCOSE 134 mg/dL (74-118); POTASSIUM 3.7 mmol/L (3.5-5.1); SODIUM 140 mmol/L (136-145)
--- NOTE | 2018-09-21 07:06 | NUR ---
Report given to oncoming RADHA Leos,walking round done.
[2018-09-21] MEDS: LISINOPRIL 10 MG TAB PO SCH (09:00)
[2018-09-21] MEDS: OSELTAMIVIR PHOSPHATE 75 MG CAP PO SCH ×2 (09:00→20:48)
--- NOTE | 2018-09-21 10:37 | Progress Note ---
DATE: September 21, 2018 INTERNAL MEDICINE PROGRESS NOTE SUBJECTIVE: He is still complaining of cough. PHYSICAL EXAMINATION VITALS: Blood pressure 146/86. Temperature 98.3. Heart rate 86 per minute. Respiratory rate 18 per minute. Oxygen saturation 94%. HEART: Regular rhythm. Normal S1, S2 sounds. LUNGS: Clear bilaterally. ABDOMEN: Soft. LABS: On the BMP, sodium 140, potassium 3.7, chloride 108, CO2 27, BUN 12, creatinine 0.79. Glucose 134. On the CBC, white blood count 2.48; hemoglobin 11.4; hematocrit 34.2; platelet count 77,000. PT 14.5, INR 1.04, PTT 35.6. AST 169, ALT 68, total bilirubin 0.9, alkaline phosphatase 77. FINAL IMPRESSION 1. Influenza. 2. Anemia. Rule out gastrointestinal bleed. 3. Hepatomegaly with possibility of cirrhosis. 4. Influenza-A pneumonia. 5. Chronic obstructive pulmonary disease. 6. Hypertension. 7. Hyperlipidemia. PLAN OF TREATMENT: Continue albuterol and Atrovent q.4 h. Continue ceftriaxone 2 grams IV daily. Zithromax 250 mg IV daily. NicoDerm patch 21 mg daily. Nitroglycerin 0.4 mg q.5 minutes p.r.n. for chest pain, no more 3 tablets. Protonix 40 mg IV daily. Tamiflu 75 mg twice a day. Lisinopril 10 mg daily. Multivitamin 1 tablet daily. Phenergan 4 mL q.4 h. as needed. Morphine 2 mg IV q.4 h. as needed. Octreotide drip 25 mL per hour. Guaifenesin 200 mg q.4 h. We are going to get the EGD today by Dr. Lul Marcos. Job#: [id number]
[2018-09-21] MEDS: NICOTINE 21 MG/EA PATCH TOP SCH (13:36)
[2018-09-21] MEDS: CEFTRIAXONE SOD 1 GM/NS 50 ML 50 ML IV SCH (13:36)
--- NOTE | 2018-09-21 15:09 | Progress Note ---
DATE: September 21, 2018 CARDIOLOGY PROGRESS NOTE SUBJECTIVE: Patient reports shortness of breath. Denies chest pain. No further gastrointestinal bleeding. However, he has not had a bowel movement today. OBJECTIVE: VITAL SIGNS: Temperature 97.6, heart rate 87, respirations are 20, blood pressure is 144/86, oxygen saturation 95% on room air. GENERAL: He is a middle-aged male, appears older than his stated age, no apparent distress. CARDIOVASCULAR: Regular rate and rhythm. LUNGS: There are scattered expiratory wheezes bilaterally with scattered rhonchi. ABDOMEN: Soft, nontender, nondistended. EXTREMITIES: No edema. CARDIOVASCULAR MEDICATIONS: Reviewed. Lisinopril 10 mg p.o. daily. LABORATORY DATA: White blood cell count 2.4, hemoglobin 11.4, platelets 77. Creatinine 0.79. AST is 169, ALT 68. IMPRESSION: 1. Sxo-IU-jqullssgt myocardial infarction. 2. Chronic obstructive pulmonary disease exacerbation. 3. Influenza with underlying pneumonia. 4. Pancytopenia. 5. Abnormal liver function tests. 6. Chronic alcohol use. 7. Gastrointestinal bleed. 8. Infrarenal abdominal aortic aneurysm. PLAN: Continue lisinopril for his blood pressure control. Antiplatelets and anticoagulants are being held given his recent gastrointestinal bleed. Patient is scheduled for endoscopy. Patient may proceed with this procedure with an acceptable cardiovascular risk. Alcohol cessation was discussed with the patient. We will continue to monitor his infrarenal abdominal aortic aneurysm as an outpatient and then a referral for surgical correction once the patient has recovered from this hospitalization. Patient likely will need coronary angiography prior to discharge. However, will continue infectious and GI bleed treatments prior to this. Job#: [id number] EV
[2018-09-21] MEDS: AZITHROMYCIN 500MG/NS 250 ML 250 ML IV SCH (15:19)
--- NOTE | 2018-09-21 15:34 | NUR ---
Nutrition Screen Note RD Recommendation for Physician: -Continue cardiac diet as ordered Plan of Care: RD following, monitoring for tolerance and adequacy Nutrition reason for involvement: LOS Primary Diagnose(s): 1. Ljs-FQ-dxhpexfvo myocardial infarction. 2. Chronic obstructive pulmonary disease exacerbation. 3. Influenza with underlying pneumonia. 4. Pancytopenia. 5. Abnormal liver function tests. 6. Chronic alcohol use. 7. Gastrointestinal bleed. 8. Infrarenal abdominal aortic aneurysm. PMH: tobacco use, hypertension, hyperlipidemia, and chronic obstructive pulmonary disease Ht: 72in Wt: 215lb BMI: 29.2kg/m2 IBW: 178lb RD Assessment: (09/21) Chart reviewed. Labs and meds reviewed. 63yo M, who is admitted for SOB. Hx of alcohol abuse; MVi w/ folic acid and thiamine has been ordered. + Flu in isolation. Pt reports fair appetite with > 50% meal intake. also brings food from outside. Pt still complains of RUQ abdominal pain due to cough but no nausea or vomiting. No BM today yet. Pt denies any chewing or swallowing difficulty. Pt denies any change in diet or weight loss [employer]. Will continue to monitor and follow. Current Diet: cardiac diet Malnutrition Evaluation (09/21/2018) The patient does not meet criteria for a specified degree of malnutrition at this time. Will re-evaluate at follow-up as appropriate. Diet Education Needs Assessment: Diet education not indicated. Nutrition Care Level: low Signed: Kelsea Medina, MS, RD, LD
[2018-09-21] MEDS: MULTIVITAMINS- 12 INJECTION 10 ML, FOLIC ACID MDV 5 MG, THIAMINE HCL INJ 100 MG in SODI... IV SCH (15:53)
[2018-09-21] MEDS: MORPHINE SULFATE INJ 4 MG/ML INJ 1ML IV PRN (19:17)
--- NOTE | 2018-09-21 19:30 | NUR ---
Report received from AM RN Kelsy.Patient received resting on his bed. Patient complained pain rate 7 on his back and chest while he coughed.Given 2mg IV morphine for pain as order. No respiratory distress noted. Respiration even and unlabored. Bed in lower position,locked. Call carranza within reach. Will continue to monitor.
--- NOTE | 2018-09-21 21:57 | NUR ---
round the patient at this time. NNO.
[2018-09-22] VITALS (7 sets, daily range): BP systolic 144–160; BP diastolic 81–99
[2018-09-22] MEDS: PANTOPRAZOLE INJ 40 MG in SODIUM CHLORIDE 0.9% 50ML 50 ML IV SCH ×5 (01:35→23:15)
[2018-09-22] MEDS: IPRATROPIUM BROMIDE 0.02% 2.5 ML NEB NEB SCH ×4 (03:35→19:30)
[2018-09-22] MEDS: ALBUTEROL SULF 0.083% NEB SOLN 3 ML NEB NEB SCH ×6 (03:35→22:45)
--- NOTE | 2018-09-22 07:04 | NUR ---
Report given to oncoming RADHA Sesay, walking round done.
--- NOTE | 2018-09-22 07:11 | NUR ---
pt resting in bed, no c/o pain or s/s distress. will continue to monitor.
[2018-09-22] MEDS: OSELTAMIVIR PHOSPHATE 75 MG CAP PO SCH (08:40)
[2018-09-22] MEDS: LISINOPRIL 10 MG TAB PO SCH (08:40)
[2018-09-22] MEDS: OCTREOTIDE ACETATE 500 MCG in SODIUM CHLORIDE 0.9% 250ML 249 ML IV SCH ×3 (09:49→20:22)
[2018-09-22] MEDS: NICOTINE 21 MG/EA PATCH TOP SCH (11:53)
[2018-09-22] MEDS: CEFTRIAXONE SOD 1 GM/NS 50 ML 50 ML IV SCH (11:53)
--- NOTE | 2018-09-22 12:46 | Progress Note ---
DATE: September 22, 2018 CARDIOLOGY PROGRESS NOTE SUBJECTIVE: Patient continues to have cough with some phlegm production and also shortness of breath with exertion. Denies any chest pain. OBJECTIVE VITAL SIGNS: Temperature 98.4, pulse 100, respiratory rate 18, blood pressure 149/99, oxygen saturation 99% on room air. GENERAL: Alert and oriented x3, resting comfortably in the bed. Does not appear to be in any acute distress at this time. LUNGS: Diminished breath sounds throughout with scattered rhonchi and also wheezes. CARDIOVASCULAR: Regular rate and rhythm. Distant heart sounds. ABDOMEN: Rounded, soft. LOWER EXTREMITIES: Trace edema bilaterally. CARDIOVASCULAR MEDICATIONS: Lisinopril 10 mg p.o. daily. LABS: No new labs today. TELEMETRY: Sinus rhythm. IMPRESSION 1. Nsi-PY-ezkiogkwb myocardial infarction. 2. Chronic obstructive pulmonary disease exacerbation. 3. Influenza. 4. Pneumonia. 5. Pancytopenia. 6. Abnormal liver function. 7. Alcohol dependency. 8. Gastrointestinal bleed. 9. Infrarenal abdominal aortic aneurysm. PLAN: Continue to monitor blood pressure closely at this time. Antiplatelet and also anticoagulation has been held at this time with reporting of a GI bleed. Patient has not been able to defecate for 2 days. However, the last time he defecate he still reports black stools. Continue to maintain on telemetry at this time. Patient will need a CT scan and monitoring of abdominal aortic aneurysm. This can be done as outpatient plus will need a surgical referral. Patient will likely need a coronary angiogram prior to discharge given knh-DS-zjgpfsfws myocardial infarction on admission. However, from a GI standpoint and also infectious standpoint, hold on this at this time. We will continue to monitor this patient very closely. Dictated by: Yola Silva NP Job#: [id number] IDU
[2018-09-22] MEDS: AZITHROMYCIN 500MG/NS 250 ML 250 ML IV SCH (13:34)
[2018-09-22] MEDS: MORPHINE SULFATE INJ 4 MG/ML INJ 1ML IV PRN (13:42)
[2018-09-22] MEDS: GUAIFENESIN 200 MG/10 ML UDC PO PRN (13:43)
[2018-09-22] MEDS: MULTIVITAMINS- 12 INJECTION 10 ML, FOLIC ACID MDV 5 MG, THIAMINE HCL INJ 100 MG in SODI... IV SCH (14:00)
--- NOTE | 2018-09-22 14:40 | Progress Note ---
DATE: September 22, 2018 INTERNAL MEDICINE PROGRESS NOTE SUBJECTIVE: He is not feeling well. PHYSICAL EXAMINATION VITAL SIGNS: Blood pressure 149/99, temperature 98.4, heart rate 100 per minute, respiratory rate 18 per minute, ox saturation 99%. HEART: Regular rhythm. Normal S1, S2 sounds. LUNGS: Clear bilaterally. ABDOMEN: Soft. LABS: On the BMP, sodium 140, potassium 3.7, chloride 108, CO2 of 27, BUN 12, creatinine 0.79, glucose 134. On the CBC, white blood count 2.48, hemoglobin 11.4, hematocrit 34.2, platelet count 77,000. PT 14.5, INR 1.04, PTT 35.6. AST 169, ALT 68, total bilirubin 0.9, alkaline phosphatase 77. FINAL IMPRESSION 1. Flu bronchitis. 2. Pneumonia. 3. Hypotension, which is resolved. 4. Chronic obstructive pulmonary disease exacerbation. 5. Elevated troponin. 6. Acute renal failure. 7. Possible cirrhosis of the liver. PLAN OF TREATMENT: Continue albuterol and Atrovent q.4 hours. Continue ceftriaxone 2 grams IV daily, Zithromax 250 mg IV once a day, lisinopril 10 mg daily, Protonix 40 mg IV daily, morphine 2 mg IV q.4 hours as needed, multivitamin tablet daily, nitroglycerin 0.4 mg q.5 minutes p.r.n. for chest pain, no more than 3 tablets. We are going to consult Dr. Giordano for vascular surgery and Dr. Miller Mars for hematology because of the pancytopenia, most likely pancytopenia related to the liver disease. Job#: [id number] ILIANA
[2018-09-22] MEDS ORDERED: PANTOPRAZOLE 40 MG 10ML VIAL ONE (23:03)
[2018-09-22] MEDS ORDERED: SODIUM CHLORIDE 0.9% 50ML 50 ML ONE (23:05)
[2018-09-23] MEDS: ALBUTEROL SULF 0.083% NEB SOLN 3 ML NEB NEB SCH ×6 (03:10→23:55)
[2018-09-23] MEDS: IPRATROPIUM BROMIDE 0.02% 2.5 ML NEB NEB SCH ×5 (03:10→23:55)
[2018-09-23] MEDS: PANTOPRAZOLE INJ 40 MG in SODIUM CHLORIDE 0.9% 50ML 50 ML IV SCH ×4 (03:15→20:30)
[2018-09-23 03:36] VITALS: BP 151/95
[2018-09-23] MEDS: GUAIFENESIN 200 MG/10 ML UDC PO PRN (04:31)
[2018-09-23] MEDS: MORPHINE SULFATE INJ 4 MG/ML INJ 1ML IV PRN (04:31)
--- NOTE | 2018-09-23 04:35 | NUR ---
Medicated with Morphine and Robitussin for cough and chest tenderness.
[2018-09-23 05:25] LABS: BASOPHILS % 0.4 % (0.0-1.0); EOSINOPHILS # (AUTO) 0.2 (0.0-0.4); EOSINOPHILS % 6.3 % (0.0-6.0); HEMATOCRIT 34.4 % (38.2-49.6); LYMPHOCYTES # (AUTO) 0.8 (1.0-3.2); LYMPHOCYTES % 28.9 % (18.0-39.1); MEAN CORPUSCULAR HEMOGLOBIN 36.8 pg (28-32); MEAN CORPUSCULAR HGB CONC 34.9 g/dL (31-35); MEAN CORPUSCULAR VOLUME 105.5 fL (81-99); MONOCYTES # (AUTO) 0.3 (0.2-0.8); MONOCYTES % 11.5 % (4.4-11.3); NEUTROPHILS # (AUTO) 1.4 (2.1-6.9); NEUTROPHILS % 52.2 % (38.7-80.0); PLATELET COUNT 73 x10e3/uL (140-360); RED BLOOD COUNT 3.26 x10e6/uL (4.3-5.7); RED CELL DISTRIBUTION WIDTH 14.3 % (11.7-14.4)
[2018-09-23 05:50] LABS: BLOOD UREA NITROGEN 8 mg/dL (7-26); BUN/CREATININE RATIO 10 (6-25); CALCIUM 7.2 mg/dL (8.4-10.2); CARBON DIOXIDE 26 mmol/L (22-29); CHLORIDE 108 mmol/L (98-107); CREATININE, SERUM 0.83 mg/dL (0.72-1.25); EST GLOMERULAR FILTRATION RATE > 60 ML/MIN (60-); GLUCOSE 131 mg/dL (74-118); SODIUM 140 mmol/L (136-145)
[2018-09-23] MEDS: OCTREOTIDE ACETATE 500 MCG in SODIUM CHLORIDE 0.9% 250ML 249 ML IV SCH ×2 (07:18→20:30)
[2018-09-23 07:58] LABS: BAND NEUTROPHILS % (MANUAL) 1 %; EOSINOPHILS % (MANUAL) 4 % (0-7); LYMPHOCYTES % (MANUAL) 29 % (19-48); MONOCYTES % (MANUAL) 10 % (3.4-9.0); NEUTROPHILS % (MANUAL) 56 % (40-74); PLATELET ESTIMATE MODERATELY DECREASED; PLATELET MORPHOLOGY COMMENT NORMAL; RBC MORPHOLOGY COMMENT NORMAL
[2018-09-23] MEDS: MULTIVITAMINS- 12 INJECTION 10 ML, FOLIC ACID MDV 5 MG, THIAMINE HCL INJ 100 MG in SODI... IV SCH (08:06)
[2018-09-23] MEDS: LISINOPRIL 10 MG TAB PO SCH (08:06)
[2018-09-23 08:07] VITALS: BP 154/91
--- NOTE | 2018-09-23 08:08 | NUR ---
pt resting in bed. no s/o pain or s/s distress. dr vásquez on unit. will continue to monitor.
--- NOTE | 2018-09-23 10:01 | Consultation ---
DATE OF CONSULTATION: September 23, 2018 REFERRING PHYSICIAN: Dr. Saul. HPI: Patient is a 63-year-old male who came to the hospital with shortness of breath and cough, was found to have pneumonia secondary to the flu. He has been treated for this, says he is improved a little bit, but still has considerable cough. During his hospitalization, he was evaluated with CT scan of the abdomen and pelvis and was found to have an infrarenal abdominal aortic aneurysm, which was about 5 cm in diameter. Patient has no symptoms at this time referable to the aneurysm. He says he walks as far as he wants, but cannot walk very fast. He does not complain of any claudication symptoms. PAST MEDICAL HISTORY: He has no known previous chronic medical problems. PAST SURGICAL SURGERY: Only previous surgery was back surgery. ALLERGIES: HE HAS NO ALLERGIES. MEDICATIONS: Listed in the chart. FAMILY HISTORY: Noncontributory. SOCIAL HISTORY: Patient smokes cigarettes up to a pack and a half a day and drinks alcohol he says every other day about a 6-pack. REVIEW OF SYSTEMS: He denies any abdominal pain at this time. PHYSICAL EXAMINATION GENERAL: The patient is awake and alert. VITAL SIGNS: Normal. He is afebrile. HEENT: Reveals no scleral icterus. NECK: Has no masses. LUNGS: There is upper airway noise bilaterally. CARDIAC: Regular rate and rhythm with no murmur. ABDOMEN: Large and difficult to examine. There is no palpable mass. There is no pulsatile mass. There is no tenderness. There is no organomegaly. EXTREMITIES: The femoral pulses are palpable bilaterally, 2+. The distal pulses are not definitely palpable. The left posterior tibial was palpable, but the other pulses were not. There is slight edema of the distal extremities with changes of venous stasis. IMAGING STUDIES: CT of the abdomen reveals infrarenal abdominal aortic aneurysm, 5 cm in greatest diameter. ASSESSMENT AND PLAN: This is a 63-year-old male with abdominal aortic aneurysm, which is not symptomatic at this time, but with its size and with his overall condition, it would probably be best if this was repaired once he is medically stable. He may benefit from referral to physician who can perform the endovascular repair. This was explained to the patient. Thank you for asking me to see Mr. Beavers. Job#: [id number] EARLINE
[2018-09-23 10:55] LABS: FOLATE 19.2 ng/mL (7.0-15.4)
--- NOTE | 2018-09-23 11:24 | Progress Note ---
DATE: September 23, 2018 CARDIOLOGY PROGRESS NOTE SUBJECTIVE: Patient reports improvement as for his shortness of breath. Does still endorse some cough. Reports that he has not been able to defecate for the last three days and his abdomen is a little bit more distended than prior. OBJECTIVE VITAL SIGNS: Temperature 97.9, pulse 95, respiratory rate 18, blood pressure 154/91, oxygen saturation 100% on room air. CARDIOVASCULAR MEDICATIONS: Lisinopril 10 mg p.o. daily. LABS: WBC 2.70, hemoglobin 12.0, hematocrit 34.4, platelets 73. Sodium 140, potassium 4.0, BUN 8, creatinine 0.83, glucose 131, calcium 7.2. PHYSICAL EXAMINATION GENERAL: Alert and oriented x3, resting comfortably in bed. Does not appear to be in any acute distress at this time. LUNGS: Diminished breath sounds at anterior posterior lower lobes. Otherwise clear to auscultation. No rhonchi, wheezing, or crackles this morning. CARDIOVASCULAR: Regular rate and rhythm. Distant heart sounds. Systolic murmur present. ABDOMEN: Distended, firm. Endorses positive flatus. EXTREMITIES: Lower extremity, trace edema bilaterally. Telemetry, sinus rhythm. IMPRESSION 1. Non-ST elevation myocardial infarction. 2. Chronic obstructive pulmonary disease exacerbation. 3. Influenza. 4. Pneumonia. 5. Pancytopenia. 6. Abnormal liver function. 7. Alcohol dependency. 8. Gastrointestinal bleed. 9. Infrarenal abdominal aortic aneurysm. PLAN: Continue to monitor this patient closely. Monitor blood pressure closely. Blood pressure appears to be elevated this morning. We will review medications and make some adjustments. Antiplatelets and anticoagulation has been held at this time given GI bleed. If patient is not able to defecate by tomorrow, consider abdominal x-ray. He does endorse that he is passing gas; however. Maintain on telemetry at all time. Patient will need a surgical referral for abdominal aortic aneurysm as outpatient. Prior to discharge, the patient will need a coronary angiogram given non-ST elevation myocardial infarction on admission. We will continue to monitor this patient very closely. Dictated by: Yola Silva NP Job#: [id number] PUN
[2018-09-23 11:50] VITALS: BP 156/97
[2018-09-23] MEDS: NICOTINE 21 MG/EA PATCH TOP SCH (11:51)
[2018-09-23] MEDS: CEFTRIAXONE SOD 1 GM/NS 50 ML 50 ML IV SCH (11:51)
[2018-09-23] MEDS: AZITHROMYCIN 500MG/NS 250 ML 250 ML IV SCH (13:04)
--- NOTE | 2018-09-23 14:03 | Progress Note ---
DATE: September 23, 2018 INTERNAL MEDICINE PROGRESS NOTE SUBJECTIVE: He is doing better now. PHYSICAL EXAM: VITAL SIGNS: Blood pressure 156/97. Temperature 97.6. Heart rate 88 per minute. Respiratory rate 18 per minute. Oxygen saturation 96%. HEART: Regular rhythm. Normal S1, S2 sounds. LUNGS: Clear bilaterally. ABDOMEN: Soft. LABORATORY DATA: On the BMP, sodium 140, potassium 4.0, chloride 108, CO2 of 26, BUN 8, creatinine 0.83. Glucose 131. On the CBC, white blood count 2.00, hemoglobin 12.0, hematocrit 34.4, and platelet count 73,000. PT 14.5, INR 1.04, PTT 35.6. AST 169. ALT 68, total bilirubin 0.9, alkaline phosphatase 77. FINAL IMPRESSION 1. Pneumonia. 2. Flu. 3. Chronic obstructive pulmonary disease. 4. Hypertension. 5. Hyperlipidemia. 6. Fatty liver. 7. Pancytopenia, most likely secondary to fatty liver and secondary to alcohol abuse. 8. Anemia of chronic disease. PLAN OF TREATMENT: Albuterol and Atrovent q.6 hours. Continue ceftriaxone 2 g IV daily. Zithromax 250 mg IV daily. NicoDerm patch 21 mg patch daily. Morphine 2 mg IV q.4 hours as needed. Protonix 40 mg IV daily. Lisinopril 20 mg daily. Multivitamin one tablet daily. 50 mL per hour. Nitroglycerin 0.4 mg q.5 minutes p.r.n. for chest pain. He is going for an EGD tomorrow and after that most likely he will be able to go home. Dr. Emmanuel is discharging the patient to go home. Job#: [id number] SOFI
[2018-09-23 15:55] VITALS: BP 129/86
--- NOTE | 2018-09-23 19:30 | NUR ---
patient recieved awake, alert, lying quietly in bed. iv to left forearm leaking with redness and swelling noted to site. iv removed and clean, dry dressing applied to site. new iv #20 gauge placed to the left forearm x 1 stick. pm assessment complete. patient instructed to call for assistance when needed.
[2018-09-23 20:00] VITALS: BP 151/110
--- NOTE | 2018-09-23 20:00 | NUR ---
bp 151\110 hr 110. call placed to notified and new orders noted.
[2018-09-23] MEDS ORDERED: LISINOPRIL 20 MG TAB PO ONE (21:00)
[2018-09-23] MEDS: METOPROLOL TARTRATE 25 MG TAB PO SCH (21:10)
--- NOTE | 2018-09-23 23:58 | Diagnostic Imaging Report ---
EXAM: ABDOMEN-1VIEW (KUB), supine INDICATION: Upper abdominal pain, distention COMPARISON: None FINDINGS: LINES/TUBES: None BOWEL PATTERN: Dilated loops of small bowel up to 3.2 cm. SOFT TISSUES: No abnormal calcifications. LUNG BASES: No consolidations. BONES: No acute findings. IMPRESSION: Findings consistent with small bowel obstruction. Signed by: Dr. Ashley Lennon M.D. on 09/23/2018 11:55 PM
[2018-09-24] VITALS (8 sets, daily range): BP systolic 132–147; BP diastolic 79–105
[2018-09-24] MEDS: GUAIFENESIN 200 MG/10 ML UDC PO PRN
[2018-09-24] MEDS: PANTOPRAZOLE INJ 40 MG in SODIUM CHLORIDE 0.9% 50ML 50 ML IV SCH ×5 (01:00→22:51)
--- NOTE | 2018-09-24 01:00 | NUR ---
kub consistent with small bowel obstruction. made aware of these results. ct abd/pelvis with po contrast ordered at this time.
[2018-09-24] MEDS: MORPHINE SULFATE INJ 4 MG/ML INJ 1ML IV PRN ×2 (01:23→21:28)
--- NOTE | 2018-09-24 01:23 | NUR ---
patient medicated with morphine 2 mg ivp for c/o upper abd pain 03/13.
[2018-09-24] MEDS ORDERED: DIATRIZOATE MEGL/DIATRIZOA SOD 30 ML BTL PO ONE (01:28)
[2018-09-24] MEDS: ALBUTEROL SULF 0.083% NEB SOLN 3 ML NEB NEB SCH ×6 (03:15→23:00)
--- NOTE | 2018-09-24 03:15 | NUR ---
ct abd/pelvis complete at this time.
--- NOTE | 2018-09-24 03:49 | Diagnostic Imaging Report ---
EXAM: CT ABDOMEN AND PELVIS without IV CONTRAST INDICATION: Abdominal pain COMPARISON: CT of the abdomen and pelvis September 19, 2018 TECHNIQUE: The abdomen and pelvis were scanned using a multidetector helical scanner. Coronal and sagittal reformations were obtained. Dose modulation, iterative reconstruction, and/or weight based adjustment of the mA/kV was utilized to reduce the radiation dose to as low as reasonably achievable. Routine protocol performed. IV Contrast: None Oral Contrast: Gastrografin CTDIvol has been reviewed. It is below the limits set by the Radiation Protocol Committee (RPC). FINDINGS: LOWER THORAX: Bibasilar atelectasis, right greater than left. Small right and trace left pleural effusions. LIVER: No masses BILIARY: Normal gallbladder. No ductal dilation. SPLEEN: No masses PANCREAS: No masses ADRENALS: No nodules RIGHT KIDNEY: No nephroureterolithiasis or hydronephrosis. Simple cyst arising from the inferior pole measuring 7 cm. LEFT KIDNEY: There is no left kidney. GI TRACT: Mild thickening of the duodenum, likely related to ascites. Mildly distended loops of small bowel up to 3.1 cm. No bowel obstruction. VESSELS: Stable lobulated infrarenal abdominal aortic aneurysm measuring up to 5.1 cm in maximum diameter. PERITONEUM/RETROPERITONEUM: Moderate ascites, increased from prior exam. LYMPH NODES: No lymphadenopathy REPRODUCTIVE ORGANS: Normal BLADDER: Normal SOFT TISSUES: Soft tissue anasarca. BONES: No suspicious bone lesions. IMPRESSION: 1. Moderate ascites, increased from prior exam. 2. Mild distention of loops of small bowel most likely related to reactive ileus. No bowel obstruction. 3. Stable infrarenal abdominal aortic aneurysm as previously described. Signed by: Dr. Ashley Lennon M.D. on 09/24/2018 3:45 AM
[2018-09-24] MEDS: MULTIVITAMINS- 12 INJECTION 10 ML, FOLIC ACID MDV 5 MG, THIAMINE HCL INJ 100 MG in SODI... IV SCH (04:33)
[2018-09-24 05:27] LABS: BASOPHILS % 0.8 % (0.0-1.0); EOSINOPHILS # (AUTO) 0.3 (0.0-0.4); EOSINOPHILS % 7.2 % (0.0-6.0); HEMATOCRIT 34.4 % (38.2-49.6); LYMPHOCYTES # (AUTO) 0.9 (1.0-3.2); LYMPHOCYTES % 24.6 % (18.0-39.1); MEAN CORPUSCULAR HEMOGLOBIN 36.7 pg (28-32); MEAN CORPUSCULAR HGB CONC 34.9 g/dL (31-35); MEAN CORPUSCULAR VOLUME 105.2 fL (81-99); MONOCYTES # (AUTO) 0.4 (0.2-0.8); MONOCYTES % 11.6 % (4.4-11.3); NEUTROPHILS % 54.7 % (38.7-80.0); PLATELET COUNT 93 x10e3/uL (140-360); RED BLOOD COUNT 3.27 x10e6/uL (4.3-5.7); RED CELL DISTRIBUTION WIDTH 14.3 % (11.7-14.4)
--- NOTE | 2018-09-24 06:12 | NUR ---
attempted to call re: ct results at 0357, 0440 and 0600. return call recieved at 0612. order recieved for paracentesis today with IR.
[2018-09-24 07:06] LABS: ALANINE AMINOTRANSFERASE 50 IU/L (0-55); ALBUMIN 2.2 g/dL (3.5-5.0); ALBUMIN/GLOBULIN RATIO 0.6 (0.8-2.0); ALKALINE PHOSPHATASE 79 IU/L (40-150); ANION GAP 10.7 mmol/L (8-16); BLOOD UREA NITROGEN 7 mg/dL (7-26); BUN/CREATININE RATIO 8 (6-25); CALCIUM 7.4 mg/dL (8.4-10.2); CARBON DIOXIDE 26 mmol/L (22-29); CHLORIDE 104 mmol/L (98-107); CREATININE, SERUM 0.83 mg/dL (0.72-1.25); EST GLOMERULAR FILTRATION RATE > 60 ML/MIN (60-); GLUCOSE 106 mg/dL (74-118); POTASSIUM 4.7 mmol/L (3.5-5.1); SODIUM 136 mmol/L (136-145)
[2018-09-24] MEDS: IPRATROPIUM BROMIDE 0.02% 2.5 ML NEB NEB SCH ×3 (07:20→19:26)
[2018-09-24] MEDS: OCTREOTIDE ACETATE 500 MCG in SODIUM CHLORIDE 0.9% 250ML 249 ML IV SCH ×2 (08:06→17:23)
[2018-09-24] MEDS: LISINOPRIL 10 MG TAB PO SCH (08:07)
[2018-09-24] MEDS: METOPROLOL TARTRATE 25 MG TAB PO SCH ×2 (08:07→16:23)
--- NOTE | 2018-09-24 08:13 | NUR ---
pt resting in bed. no c/o pain or s/s distress at this time. pt has questions regarding procedure and has not discussed with MD, consent pending pt talk to md about procedure. will continue to monitor.
[2018-09-24] MEDS: CEFTRIAXONE SOD 1 GM/NS 50 ML 50 ML IV SCH (12:00)
[2018-09-24] MEDS: NICOTINE 21 MG/EA PATCH TOP SCH (12:00)
[2018-09-24] MEDS: AZITHROMYCIN 500MG/NS 250 ML 250 ML IV SCH (16:22)
--- NOTE | 2018-09-24 16:23 | Diagnostic Imaging Report ---
Date and Time: 09/24/2018 Procedure: Ultrasound-guided paracentesis fixed route operator: Dr. Quiroz Pre-operative diagnosis: Ascites Post-operative diagnosis: Ascites Conscious Sedation: None The patient's heart rate and pulse oximetry were continuously monitored by the interventional radiology nurse. Blood pressure was monitored at 5 minute intervals. Additional Medications: Lidocaine 1% for local anesthesia : Estimated blood loss: Minimal Blood products administered: None Specimens: 3600 cc ramu-colored fluid Implants: None DISCUSSION: Informed consent was obtained and documented in the medical record. The right side of the abdomen was prepped and draped in standard sterile fashion. 1% lidocaine was infiltrated into the skin and subcutaneous tissues for local anesthesia. Under continuous sonographic guidance a 5 [place] [employer] needle catheter was advanced into the peritoneal cavity. The catheter was advanced off the needle and connected to vacuum bottle with subsequent evacuation of 3600 cc ramu-colored fluid. The catheter was removed and a sterile dressing was applied. Patient tolerated the procedure well without immediate complication. FINDINGS: Moderate ascites IMPRESSION: Successful ultrasound-guided paracentesis with evacuation of 3600 cc ramu-colored fluid. Specimen was submitted for laboratory analysis as requested by the referring clinical team. Signed by: Dr. Brandon Quiroz M.D. on 09/24/2018 4:19 PM
--- NOTE | 2018-09-24 16:23 | Diagnostic Imaging Report ---
Date and Time: 09/24/2018 Procedure: Ultrasound-guided paracentesis can line operator: Dr. Quiroz Pre-operative diagnosis: Ascites Post-operative diagnosis: Ascites Conscious Sedation: None The patient's heart rate and pulse oximetry were continuously monitored by the interventional radiology nurse. Blood pressure was monitored at 5 minute intervals. Additional Medications: Lidocaine 1% for local anesthesia : Estimated blood loss: Minimal Blood products administered: None Specimens: 3600 cc ramu-colored fluid Implants: None DISCUSSION: Informed consent was obtained and documented in the medical record. The right side of the abdomen was prepped and draped in standard sterile fashion. 1% lidocaine was infiltrated into the skin and subcutaneous tissues for local anesthesia. Under continuous sonographic guidance a 5 [place] [employer] needle catheter was advanced into the peritoneal cavity. The catheter was advanced off the needle and connected to vacuum bottle with subsequent evacuation of 3600 cc ramu-colored fluid. The catheter was removed and a sterile dressing was applied. Patient tolerated the procedure well without immediate complication. FINDINGS: Moderate ascites IMPRESSION: Successful ultrasound-guided paracentesis with evacuation of 3600 cc ramu-colored fluid. Specimen was submitted for laboratory analysis as requested by the referring clinical team. Signed by: Dr. Brandon Quiroz M.D. on 09/24/2018 4:19 PM
--- NOTE | 2018-09-24 16:23 | NUR ---
bedside paracentesis done, MD performing procedure explained and consent obtained. per nurse, 3.6L removed, pt vs stable with no c/o pain or s/s distress. will continue to monitor.
--- NOTE | 2018-09-24 17:24 | NUR ---
pt reports gout flairup with right knee on unit, home med added to emar
[2018-09-24] MEDS ORDERED: ALLOPURINOL100 MG PO (17:25)
[2018-09-24] MEDS: ALLOPURINOL 100 MG TAB PO SCH (18:43)
--- NOTE | 2018-09-24 20:09 | Progress Note ---
DATE: September 24, 2018 INTERNAL MEDICINE PROGRESS NOTE SUBJECTIVE: Patient is complaining of pain of the knees. He said that he has gout before and it is most likely secondary to gout. PHYSICAL EXAMINATION: VITAL SIGNS: Blood pressure 133/79, temperature 97.5, heart rate 81 per minute, respiratory rate 18 per minute, oxygen saturation 96%. HEART: Shows regular rhythm. Normal S1 and S2 sounds. LUNGS: Clear bilaterally. ABDOMEN: Soft. EXTREMITIES: Shows swelling of both knees. On the BMP, sodium 136, potassium 4.7, chloride 104, CO2 26, BUN 7, creatinine 0.83, glucose 106. On the CBC, white blood count 3.62, hemoglobin 12.0, hematocrit 34.4, platelet count 93,000. PT 14.5, INR 1.04, PTT 35.6. AST 76, ALT 50, total bilirubin 1.5, alkaline phosphatase 79. FINAL IMPRESSION: 1. Pneumonia. 2. Flu. 3. Pancytopenia secondary to cirrhosis. 4. Gouty attack. 5. Cirrhosis. 6. Hypertension. 7. Chronic obstructive pulmonary disease. 8. Rectal bleeding. PLAN OF TREATMENT: He is going to get an EGD by Dr. Lul Marcos. Continue Protonix drip. Continue nicotine patch 21 mg daily, morphine 2 mg IV q.4h. as needed, Zithromax 250 mg IV daily, albuterol and Atrovent q.4h., Protonix 40 mg, lisinopril 20 mg daily, multivitamin 1 tablet daily, guaifenesin 200 mg q.4h., metoprolol 25 mg twice a day, octreotide 25 mL per hour. Nitroglycerin 0.4 mg every 5 minutes p.r.n. for chest pain, no more than 3 tablets. Job#: [id number]
--- NOTE | 2018-09-24 23:36 | Progress Note ---
DATE: September 24, 2018 CARDIOLOGY PROGRESS NOTE SUBJECTIVE: No major events overnight. OBJECTIVE: VITAL SIGNS: Temperature 97.9, pulse 95, respiratory rate 18, blood pressure 154/91, satting 100% on room air. GENERAL: Well developed, well nourished, in no acute distress. CARDIOVASCULAR: Regular rate and rhythm. Distant heart sounds. Systolic murmur. Palpable carotid pulses. Palpable radial pulses. LUNGS: Diminished breath sounds, anterior and posterior lobes, otherwise clear to auscultation. ABDOMEN: Soft, mildly distended. EXTREMITIES: Trace edema, bilateral lower extremities. NEURO AND PSYCH: Alert and oriented to person, place, and time. Normal affect. CARDIOVASCULAR MEDICATIONS: Reviewed. LABORATORY DATA: Reviewed. TELEMETRY DATA: Reviewed, shows normal sinus rhythm. IMPRESSION: 1. Rmb-AH-ddcjwctii myocardial infarction. 2. Chronic obstructive pulmonary disease exacerbation. 3. Influenza. 4. Pneumonia. 5. Pancytopenia. 6. Abnormal liver function. 7. Alcohol dependency. 8. Gastrointestinal bleeding. 9. Infrarenal abdominal aortic aneurysm. PLAN: Continue to monitor closely. Will adjust medicines to treat hypertension. No antiplatelets or anticoagulation given GI bleed. Patient will need coronary angiogram prior to discharge given [id number] [place], however, will await resolution of his ongoing medical issues first. Thank you for this consult. Will continue to follow. Job#: [id number]
[2018-09-25] VITALS (8 sets, daily range): BP systolic 118–152; BP diastolic 79–88
[2018-09-25] MEDS ORDERED: FUROSEMIDE 40 MG TAB PO ONE (00:30)
[2018-09-25] MEDS: MULTIVITAMINS- 12 INJECTION 10 ML, FOLIC ACID MDV 5 MG, THIAMINE HCL INJ 100 MG in SODI... IV SCH ×2 (00:58→21:20)
[2018-09-25] MEDS: IPRATROPIUM BROMIDE 0.02% 2.5 ML NEB NEB SCH ×4 (02:39→18:55)
[2018-09-25] MEDS: ALBUTEROL SULF 0.083% NEB SOLN 3 ML NEB NEB SCH ×6 (02:39→22:30)
[2018-09-25] MEDS: OCTREOTIDE ACETATE 500 MCG in SODIUM CHLORIDE 0.9% 250ML 249 ML IV SCH ×2 (03:43→15:09)
[2018-09-25] MEDS: PANTOPRAZOLE INJ 40 MG in SODIUM CHLORIDE 0.9% 50ML 50 ML IV SCH ×5 (03:43→19:44)
[2018-09-25 05:02] LABS: BASOPHILS % 0.5 % (0.0-1.0); EOSINOPHILS # (AUTO) 0.2 (0.0-0.4); EOSINOPHILS % 4.6 % (0.0-6.0); HEMATOCRIT 36.2 % (38.2-49.6); HEMOGLOBIN 12.1 g/dL (14.0-18.0); LYMPHOCYTES # (AUTO) 0.7 (1.0-3.2); LYMPHOCYTES % 18.2 % (18.0-39.1); MEAN CORPUSCULAR HEMOGLOBIN 35.3 pg (28-32); MEAN CORPUSCULAR HGB CONC 33.4 g/dL (31-35); MEAN CORPUSCULAR VOLUME 105.5 fL (81-99); MONOCYTES # (AUTO) 0.3 (0.2-0.8); MONOCYTES % 8.4 % (4.4-11.3); NEUTROPHILS # (AUTO) 2.5 (2.1-6.9); NEUTROPHILS % 67.8 % (38.7-80.0); PLATELET COUNT 93 x10e3/uL (140-360); RED BLOOD COUNT 3.43 x10e6/uL (4.3-5.7)
[2018-09-25 05:14] LABS: ANION GAP 10.8 mmol/L (8-16); BLOOD UREA NITROGEN 7 mg/dL (7-26); BUN/CREATININE RATIO 9 (6-25); CARBON DIOXIDE 23 mmol/L (22-29); CHLORIDE 105 mmol/L (98-107); CREATININE, SERUM 0.78 mg/dL (0.72-1.25); EST GLOMERULAR FILTRATION RATE > 60 ML/MIN (60-); GLUCOSE 112 mg/dL (74-118); POTASSIUM 3.8 mmol/L (3.5-5.1); SODIUM 135 mmol/L (136-145)
[2018-09-25 05:16] LABS: CALCIUM 6.9 mg/dL (8.4-10.2)
--- NOTE | 2018-09-25 06:06 | NUR ---
Called to informed patient's critical lab calcium:6.9. aware about it. NNO.
[2018-09-25] MEDS: SPIRONOLACTONE 25 MG TAB PO SCH ×2 (08:51→16:40)
[2018-09-25] MEDS: METOPROLOL TARTRATE 25 MG TAB PO SCH ×2 (08:51→16:40)
[2018-09-25] MEDS: LISINOPRIL 10 MG TAB PO SCH (08:51)
[2018-09-25] MEDS: ALLOPURINOL 100 MG TAB PO SCH (08:51)
[2018-09-25] MEDS: MORPHINE SULFATE INJ 4 MG/ML INJ 1ML IV PRN ×2 (09:47→20:45)
[2018-09-25] MEDS: NICOTINE 21 MG/EA PATCH TOP SCH (14:09)
--- NOTE | 2018-09-25 15:26 | Operative Report ---
DATE OF PROCEDURE: September 25, 2018 REFERRING PHYSICIAN: Dr. Dilcia Godoy. PROCEDURE PERFORMED: Esophagogastroduodenoscopy with biopsies. INDICATIONS FOR ESOPHAGOGASTRODUODENOSCOPY: Anemia. History of melena. MEDICATION: Patient was done under MAC. Please see anesthesiologist's note. PROCEDURE: With the patient in the left lateral decubitus position, the flexible fiberoptic Olympus gastroscope was introduced into the esophagus under direct visualization without any difficulty. There were some grade 1 esophageal varices noted without active bleeding or stigmata of recent hemorrhage. There was a nodule noted at the GE junction, and that was biopsied. The scope was then advanced with ease into the stomach. Mucosa overlying the antrum revealed some diffuse erythema and moderate edema, and biopsies were obtained and sent to stain for H. pylori. Also findings consistent with portal hypertensive gastropathy more prominent in the body and the fundus, and biopsies were obtained. The pylorus was of normal contour and shape, was intubated with ease, and the scope was advanced all the way to the 2nd portion of the duodenum. The scope was then withdrawn slowly. Mucosa overlying the proximal 2nd portion appeared to be within normal limits. There was a prominent nodule noted approximately 4 mm in size in the duodenal bulb, and that was biopsied. Also, an approximately 1 cm sessile ulcerated lesion in the duodenal bulb that was biopsied. The scope was then withdrawn back into the stomach and retroflexed, and no fundal or cardiac varices were noted. The scope was then straightened out. It was subsequently withdrawn. Patient tolerated the procedure well. IMPRESSION: 1. Grade 1 esophageal varices without active bleeding or stigmata of recent hemorrhage. 2. Nodule gastroesophageal junction biopsied. 3. Gastritis biopsied. Biopsies sent to stain for H. pylori. 4. Portal hypertensive gastropathy more prominent in the body and the fundus. 5. Duodenal bulb nodule approximately 4 mm in size biopsied. 6. Approximately 1 cm sessile ulcerated lesion in the duodenal bulb biopsied. PLAN: Follow up histology. Continue current therapy. Resume diet. Job#: [id number] EV cc:DILCIA GODOY MD
[2018-09-25] MEDS ORDERED: PHENYLEPHRINE HCL 1% 10 MG/ML VIAL ONE (17:34)
[2018-09-25] MEDS ORDERED: PROPOFOL IV EMULSION 10 MG/ML 20 ML VIAL ONE (17:34)
[2018-09-25] MEDS ORDERED: LIDOCAINE HCL 2% LOCAL INJ 5 ML SDV VIAL INJ ONE (17:34)
--- NOTE | 2018-09-25 19:00 | NUR ---
Report received from AM RADHA Myers. Patient received resting on his bed. Denied pain and no SOB. No respiratory distress noted. Bed in lower position,locked.Call carranza within reach. Will continue to monitor.
--- NOTE | 2018-09-25 19:17 | Progress Note ---
DATE: September 25, 2018 CARDIOLOGY PROGRESS NOTE SUBJECTIVE: No major events overnight. No chest pain. OBJECTIVE: VITAL SIGNS: Temperature afebrile, pulse 84, respiratory rate 18, blood pressure 129/79, satting 100% on 2 liters nasal cannula. GENERAL: In no acute distress. CARDIOVASCULAR: Regular rate and rhythm. Systolic flow murmur. Palpable carotid pulses. Palpable radial pulses. LUNGS: Clear to auscultation bilaterally. ABDOMEN: Soft, nontender, nondistended. NEURO AND PSYCH: Alert and oriented to person, place, and time. Normal affect. CARDIOVASCULAR MEDICATIONS: Reviewed. LABORATORY DATA: Reviewed. TELEMETRY DATA: Reviewed. ASSESSMENT: 1. Kpl-SF-mvtqjpjtr myocardial infarction. 2. Chronic obstructive pulmonary disease exacerbation. 3. Influenza. 4. Pneumonia. 5. Pancytopenia. 6. Abnormal liver function tests. 7. Alcohol dependency. 8. Gastrointestinal bleeding. 9. Infrarenal abdominal aortic aneurysm. PLAN: Will continue to monitor closely. Patient does warrant ischemic workup given elevated troponins, however, given concern for GI bleeding, will defer until cleared by GI for anticoagulation. Continue current cardiovascular medications. Thank you for this consult. Will continue to follow. Job#: [id number]
--- NOTE | 2018-09-25 20:35 | Progress Note ---
DATE: No dictation. Job#: [id number]
[2018-09-26 00:06] VITALS: BP 140/96
[2018-09-26] MEDS: MORPHINE SULFATE INJ 4 MG/ML INJ 1ML IV PRN (01:30)
[2018-09-26] MEDS: OCTREOTIDE ACETATE 500 MCG in SODIUM CHLORIDE 0.9% 250ML 249 ML IV SCH (01:34)
[2018-09-26] MEDS: PANTOPRAZOLE INJ 40 MG in SODIUM CHLORIDE 0.9% 50ML 50 ML IV SCH ×2 (01:34→06:33)
[2018-09-26] MEDS: IPRATROPIUM BROMIDE 0.02% 2.5 ML NEB NEB SCH ×2 (03:00→07:00)
[2018-09-26] MEDS: ALBUTEROL SULF 0.083% NEB SOLN 3 ML NEB NEB SCH ×2 (03:00→07:00)
[2018-09-26 05:00] VITALS: BP 130/87
[2018-09-26 05:17] LABS: BASOPHILS % 0.4 % (0.0-1.0); EOSINOPHILS # (AUTO) 0.1 (0.0-0.4); EOSINOPHILS % 2.3 % (0.0-6.0); HEMATOCRIT 35.5 % (38.2-49.6); HEMOGLOBIN 12.1 g/dL (14.0-18.0); LYMPHOCYTES # (AUTO) 0.7 (1.0-3.2); LYMPHOCYTES % 13.1 % (18.0-39.1); MEAN CORPUSCULAR HEMOGLOBIN 35.5 pg (28-32); MEAN CORPUSCULAR HGB CONC 34.1 g/dL (31-35); MEAN CORPUSCULAR VOLUME 104.1 fL (81-99); MONOCYTES # (AUTO) 0.4 (0.2-0.8); MONOCYTES % 8.2 % (4.4-11.3); NEUTROPHILS # (AUTO) 3.9 (2.1-6.9); NEUTROPHILS % 75.6 % (38.7-80.0); PLATELET COUNT 96 x10e3/uL (140-360); RED BLOOD COUNT 3.41 x10e6/uL (4.3-5.7); RED CELL DISTRIBUTION WIDTH 13.8 % (11.7-14.4)
[2018-09-26 05:40] LABS: ANION GAP 11.4 mmol/L (8-16); BLOOD UREA NITROGEN 6 mg/dL (7-26); BUN/CREATININE RATIO 8 (6-25); CARBON DIOXIDE 25 mmol/L (22-29); CHLORIDE 101 mmol/L (98-107); CREATININE, SERUM 0.78 mg/dL (0.72-1.25); EST GLOMERULAR FILTRATION RATE > 60 ML/MIN (60-); GLUCOSE 121 mg/dL (74-118); POTASSIUM 3.4 mmol/L (3.5-5.1); SODIUM 134 mmol/L (136-145)
[2018-09-26 05:49] LABS: CALCIUM 6.8 mg/dL (8.4-10.2)
--- NOTE | 2018-09-26 07:06 | NUR ---
Report given to oncoming RN Inga,walking round done
--- NOTE | 2018-09-26 07:24 | NUR ---
MD DR.M RAMOS PAGED PT PLANNED TO DC THIS AM, PT STILL ON DRIPS AND MVI BAG. AWAITING CALL BACK FOR DISCHARGE ORDERS
[2018-09-26 08:00] VITALS: BP 149/96
--- NOTE | 2018-09-26 08:41 | Discharge Summary ---
HOSPITAL COURSE: Patient is a 63-year-old white male whose past medical history is apparently negative for any medical condition according to him. Came with shortness of breath, cough, and chest pain. He was found to have influenza A, COPD exacerbation, elevated troponins. Patient was seen by cardiology who did not recommend any type of workup. Patient was started on and metoprolol. He was started on Tamiflu. He was started on broad-spectrum IV antibiotic. He was found to have anemia with guaiac-positive stools. He had an endoscopy done, which showed gastric portal hypertension, esophageal varices, and gastritis, some nodules in the stomach and duodenum also some gastritis. Also it evolved in the duodenum. No evidence of any active bleeding. Patient had pancytopenia secondary to cirrhosis. Patient apparently has a history of alcohol abuse and tobacco abuse also. He is doing better. He finished a course of IV antibiotic. His hemoglobin and hematocrit are stable. He is asymptomatic. He is doing much better. He is going home today. PHYSICAL EXAM: The heart shows regular rhythm. Normal S1 and S2 sounds. Lungs are clear bilaterally. Abdomen is soft. Extremities show no evidence of cyanosis, edema or trauma. On the BMP, sodium 135, potassium 3.8, chloride 105, CO2 of 23, BUN 7, creatinine 0.78, and glucose 112. On the CBC, white blood count 3.68, hemoglobin 12.1, hematocrit 36.2, and platelet count 96,000. PT 14.5, INR 1.04, and PTT 35.6. AST 76, ALT 50. Total bilirubin 1.5, alkaline phosphatase 79. FINAL IMPRESSIONS 1. Episode of influenza. 2. Pneumonia. 3. Cirrhosis with portal hypertension with esophageal varices and portal hypertension in the stomach. 4. Gastritis. 5. Chronic obstructive pulmonary disease. 6. Hypertension. 7. Pancytopenia. PLAN OF TREATMENT: He is going to be discharged on 1. ProAir 2 puffs every 4 hours as needed for shortness of breath. 2. Protonix 40 mg once a day. 3. Inderal LA because of the portal hypertension 40 mg daily. 4. Ropinirole 100 mg daily. 5. Aldactone 50 mg twice a day. 6. Lasix 20 mg daily. 7. Lisinopril 20 mg daily. He is supposed to follow with his primary care physician in a week. Dr. Emmanuel discharged the patient from the infectious disease point of view. He shall have an EGD done. No evidence of any active bleeding. Patient will follow up with his primary care physician in a week. DILCIA GODOY MD Job#: [id number] CF
[2018-09-26] MEDS: METOPROLOL TARTRATE 25 MG TAB PO SCH (08:54)
[2018-09-26] MEDS: SPIRONOLACTONE 25 MG TAB PO SCH (08:54)
[2018-09-26] MEDS: ALLOPURINOL 100 MG TAB PO SCH (08:55)
[2018-09-26] MEDS: LISINOPRIL 10 MG TAB PO SCH (08:55)
--- NOTE | 2018-09-26 08:57 | NUR ---
SPOKE WITH NOTIFIED OF PT COMPLAINS OF R KNEE PAIN, TROUBLE SWALLOWING, AND CALCIUM LEVEL AT 6.8 PER MD AWARE OF PATIENT COMPLAINS. PT SAFE TO GO HOME AT THIS TIME. PT MADE AWARE NO FURTHER COMPLAINS AT THIS TIME
--- NOTE | 2018-09-26 10:07 | NUR ---
THIS RN TOUCHED BASES WITH PATIENT REGARDING PLAN TO GO HOME, PT STATES HIS WILL BE HERE AFTER HER CLASS.
--- NOTE | 2018-09-26 12:30 | NUR ---
PATIENT DISCHARGED AT THIS TIME RX GIVEN EDUCATION AND F/U INSTRUCTIONS. PT INSTRUCTED TO FOLLOW UP WITH DR. Javier RAMOS, AND PT AND VERBALIZED UNDERSTANDING. IV DC'D SECURED WITH 4X4 GAUZE AND TAPE.
--- NOTE | 2018-10-11 09:49 | Consultation ---
DATE OF CONSULTATION: September 23, 2018 CONSULTATION TO: Dr. Neal Saul HISTORY: Mr. Beavers is 63-year-old white male who had presented with abdominal pain. Subsequently was referred to me because of neutropenia, anemia, and thrombocytopenia. SOCIAL HISTORY: History of excessive alcohol intake. FAMILY HISTORY: Noncontributory. ALLERGIES: REPORTED NONE. MEDICATIONS: At this time: 1. Albuterol. 2. Ceftriaxone. 3. Zithromax. 4. Protonix. 5. Multivitamins. 6. Octreotide. 7. Nicotine. 8. Phenol. 9. Guaifenesin. 10. Nitroglycerin. 11. Lisinopril. 12. Morphine. REVIEW OF SYSTEMS: HEENT: Normal. CARDIAC: History of chest pains. RESPIRATORY: At the present time bronchopneumonia, influenza. GI: Cirrhotic liver. : Normal. MUSCULOSKELETAL: Normal. SKIN AND BREASTS: Normal. NEUROENDOCRINE: Essentially normal. PHYSICAL EXAMINATION: GENERAL: A rather obese male. NECK: No palpable adenopathy. HEART: Tachycardic. LUNGS: Shows coarse crepitations. ABDOMEN: Obese. Ascites is felt. RECTAL: Deferred. CENTRAL NERVOUS SYSTEM: Essentially normal. EXTREMITIES: 2+ pitting edema. LABS: Shows a hemoglobin of 12, hematocrit of 34.4, white count of 2700, platelets of 73,000. INR 1.05, bilirubin 0.9, SGOT 169, SGPT 68, alkaline phosphatase 77. BUN 8, creatinine 0.8. Sodium of 140, potassium 4.0, chloride is 108, CO2 26. IMPRESSION: 1. Anemia (mean corpuscular volume high at 110.1). 2. Neutropenia (2.7). 3. Thrombocytopenia (73). 4. Congestive heart failure (B-type natriuretic peptide 2926). 5. Lactic acidosis (67.8). 6. Hypoalbuminemia (2.8). 7. Hypoproteinemia (6.2). 8. Hypocalcemia (7.7). 9. Gastrointestinal bleed (stool for occult blood positive). 10. Positive Haemophilus flu A. 11. Sputum positive for Streptococcus pneumoniae. 12. Infrarenal aortic aneurysm 5.1 cm. 13. Pleural effusion. 14. Bilateral bronchopneumonia. PLAN, COMMENTS, AND SUGGESTIONS: Suggest B12 level, suggest aggressive antibiotics, suggest a thorough GI workup. The patient had ascites tapped on September 25. The patient subsequently was discharged. I will be more than happy to follow this patient as an outpatient if the attending would call and make an appointment. Thank you. Job#: [id number] cc:JOSE CELESTE M.D. MD YOLY MUNOZ MD VICTOR VAN PHAN, DO
== END 2018-09-26 12:21 | disposition home or self-care (01) | DRG 193 ==
LOC: ER 09:15 → ERHOLD 11:46 → IMCU 13:32
PROVIDERS: ADMIT Internal Medicine; ATTEND Internal Medicine
PROC: 0W9G3ZX Drainage of Peritoneal Cavity, Percutaneous Approach, Diagnostic (ICD-10-PCS; 2018-09-24)
PROC: 0DB68ZX Excision of Stomach, Via Natural or Artificial Opening Endoscopic, Diagnostic (ICD-10-PCS; 2018-09-25)
PROC: 0DB48ZX Excision of Esophagogastric Junction, Via Natural or Artificial Opening Endoscopic, Diagnostic (ICD-10-PCS; 2018-09-25)
PROC: 0DB98ZX Excision of Duodenum, Via Natural or Artificial Opening Endoscopic, Diagnostic (ICD-10-PCS; principal; 2018-09-25 14:00)
DX: J11.08 Influenza due to unidentified influenza virus with specified pneumonia (principal); I21.4 Non-ST elevation (NSTEMI) myocardial infarction; N17.9 Acute kidney failure, unspecified; J44.0 Chronic obstructive pulmonary disease with (acute) lower respiratory infection; J44.1 Chronic obstructive pulmonary disease with (acute) exacerbation; K92.1 Melena; D61.818 Other pancytopenia; E87.2 Acidosis; I85.10 Secondary esophageal varices without bleeding; K76.6 Portal hypertension; E87.1 Hypo-osmolality and hyponatremia; I13.0 Hypertensive heart and chronic kidney disease with heart failure and stage 1 through stage 4 chronic kidney disease, or unspecified chronic kidney disease; J13 Pneumonia due to Streptococcus pneumoniae; D64.9 Anemia, unspecified; E78.5 Hyperlipidemia, unspecified; I07.1 Rheumatic tricuspid insufficiency; I71.4 Abdominal aortic aneurysm, without rupture; R16.0 Hepatomegaly, not elsewhere classified; D69.6 Thrombocytopenia, unspecified; E03.9 Hypothyroidism, unspecified; K29.70 Gastritis, unspecified, without bleeding; K31.89 Other diseases of stomach and duodenum; K29.80 Duodenitis without bleeding; K70.31 Alcoholic cirrhosis of liver with ascites; N18.9 Chronic kidney disease, unspecified; F10.20 Alcohol dependence, uncomplicated; K70.0 Alcoholic fatty liver; M10.9 Gout, unspecified
CPT/HCPCS: 36415; 43239; 49083; 71045; 71046; 74018; 74176; 74177; 74470; 80048; 80053; 82140; 82270; 82378; 82390; 82550; 82553; 82607; 82746; 83540; 83605; 83880; 84145; 84484; 85025; 85610; 85730; 86039; 87040; 87070; 87205; 87400; 87493; 88112; 88305; 88312; 93005; 93306; 94640; 96360; 96367; 99284; J0456; J0696; J1650; J2001; J2270; J2353; J2370; J2930; J3411; J7030; J7050; Q9967

== ENCOUNTER → 2019-12-23 | Outpatient (CLI) | payer MEDICARE ==
[~2019-12-23] MED LIST: ALLOPURINOL100 MG PO; ATENOLOL50 MG PO
[2019-12-23 16:22] LABS: BASOPHILS # (AUTO) 0.1 (0.0-0.1); BASOPHILS % 1.2 % (0.0-1.0); EOSINOPHILS # (AUTO) 0.1 (0.0-0.4); EOSINOPHILS % 1.7 % (0.0-6.0); HEMOGLOBIN 13.3 g/dL (14.0-18.0); LYMPHOCYTES # (AUTO) 0.9 (1.0-3.2); LYMPHOCYTES % 13.4 % (18.0-39.1); MEAN CORPUSCULAR HEMOGLOBIN 35.9 pg (28-32); MEAN CORPUSCULAR HGB CONC 33.3 g/dL (31-35); MEAN CORPUSCULAR VOLUME 108.1 fL (81-99); MONOCYTES # (AUTO) 0.5 (0.2-0.8); MONOCYTES % 7.8 % (4.4-11.3); NEUTROPHILS # (AUTO) 5.3 (2.1-6.9); NEUTROPHILS % 75.6 % (38.7-80.0); PLATELET COUNT 114 x10e3/uL (140-360); RED CELL DISTRIBUTION WIDTH 14.5 % (11.7-14.4)
--- NOTE | 2019-12-23 16:22 | Diagnostic Imaging Report ---
EXAMINATION: CHEST 2 VIEWS INDICATION: Shortness of breath COMPARISON: Chest radiograph of 09/18/2018 FINDINGS: LINES/TUBES:None LUNGS:The lungs are mildly hyperinflated. No focal consolidation or pulmonary edema. PLEURA:No pleural effusion or pneumothorax. MEDIASTINUM:The cardiomediastinal silhouette appears normal in size and shape. BONES/SOFT TISSUES:No acute osseous injury. ABDOMEN:No free air under the diaphragm. IMPRESSION: Mildly hyperinflated lungs. No focal pneumonia or pulmonary edema. Signed by: Umair Byers MD on 12/23/2019 4:19 PM
[2019-12-23 16:42] LABS: ALANINE AMINOTRANSFERASE 54 IU/L (0-55); ALBUMIN 3.2 g/dL (3.5-5.0); ALBUMIN/GLOBULIN RATIO 0.9 (0.8-2.0); ALKALINE PHOSPHATASE 150 IU/L (40-150); ANION GAP 14.3 mmol/L (8-16); BLOOD UREA NITROGEN 11 mg/dL (7-26); BUN/CREATININE RATIO 12 (6-25); CALCIUM 8.1 mg/dL (8.4-10.2); CARBON DIOXIDE 28 mmol/L (22-29); CHLORIDE 101 mmol/L (98-107); CREATININE, SERUM 0.91 mg/dL (0.72-1.25); EST GLOMERULAR FILTRATION RATE > 60 ML/MIN (60-); GLUCOSE 102 mg/dL (74-118); POTASSIUM 4.3 mmol/L (3.5-5.1); SODIUM 139 mmol/L (136-145)
[2019-12-23 17:03] LABS: FREE THYROXINE INDEX 2.3981 (1.4-3.8); THYROID STIMULATING HORMONE 2.858 uIU/mL (0.350-4.940)
[2019-12-24 04:20] LABS: PROSTATE SPECIFIC AG TOTAL 0.2 ng/mL (0.0-4.0); PSA FREE 0.09 ng/mL
== END ==
LOC: RAD 15:22
PROVIDERS: ATTEND Internal Medicine
DX: Z12.5 Encounter for screening for malignant neoplasm of prostate (principal); R06.02 Shortness of breath; I48.91 Unspecified atrial fibrillation
CPT/HCPCS: 36415; 71046; 80053; 84153; 84436; 84443; 84479; 85025

== ENCOUNTER → 2019-12-30 | Outpatient (CLI) | payer MEDICARE ==
[~2019-12-30] MED LIST changes: +DIATRIZOATE MEGL/DIATRIZOA SOD 30 ML BTL PO ONE
--- NOTE | 2019-12-30 13:19 | Diagnostic Imaging Report ---
EXAM: CT Chest and Abdomen WITHOUT intravenous contrast INDICATION: Weight loss, hepatomegaly COMPARISON: None. TECHNIQUE: The chest and abdomen were scanned utilizing a multidetector helical scanner from the thoracic inlet to the iliac crest without administration of IV contrast. Coronal and sagittal reformations were obtained. IV CONTRAST: None ORAL CONTRAST: Gastrografin COMPLICATIONS: None RADIATION DOSE: Total DLP: 765 mGy*cm Dose modulation, iterative reconstruction, and/or weight based adjustment of the mA/kV was utilized to reduce the radiation dose to as low as reasonably achievable. FINDINGS: LINES/ TUBES: None. LUNGS AND AIRWAYS: The central airways are patent. Mild biapical pleural parenchymal thickening/scarring. Mild bilateral upper lobe predominant centrilobular emphysema. No focal consolidation or pulmonary edema. No suspicious pulmonary nodules. PLEURA: The pleural spaces are clear. HEART AND MEDIASTINUM: The thyroid gland is normal. No supraclavicular, axillary, mediastinal, or hilar lymphadenopathy. The heart is not enlarged. No pericardial effusion. Atherosclerotic calcifications involve the thoracic aorta, coronary arteries, and proximal great vessels. HEPATOBILIARY: Hepatic steatosis. Mildly nodular liver surface contour can be seen with early hepatic cirrhosis. No definite focal liver lesion. Unremarkable gallbladder. SPLEEN: Mild splenomegaly to 14.1 cm. PANCREAS: No focal masses or ductal dilatation. ADRENALS: No adrenal nodules. KIDNEYS/URETERS: The left kidney is absent. 6.3 cm right lower pole simple renal cyst. No right hydronephrosis or renal calculus. PERITONEUM / RETROPERITONEUM: Small volume abdominal ascites. No free air. LYMPH NODES: No lymphadenopathy. VESSELS: Diffuse atherosclerotic calcifications of the aorta and major branches. Fusiform infrarenal abdominal aortic aneurysm measures up to 6.1 cm at its widest point. GI TRACT: No abnormal bowel thickening. No bowel obstruction. BONES AND SOFT TISSUES: No acute osseous injury. No suspicious lytic or blastic lesions. IMPRESSION: Fusiform infrarenal abdominal aortic aneurysm measures up to 6.[address] Coleman and recommendation made for evaluation for intervention. Hepatic steatosis and findings of early hepatic cirrhosis. Splenomegaly and small volume abdominal ascites. No focal pneumonia or pulmonary edema. The above findings were discussed with Dr. Coleman on 12/30/2019 12:52 PM, who responded indicating that the communication was understood. Signed by: Umair Byers MD on 12/30/2019 1:16 PM
== END ==
LOC: CT 10:03
PROVIDERS: ATTEND Internal Medicine Cardiovascular Disease
DX: R16.0 Hepatomegaly, not elsewhere classified (principal); R63.4 Abnormal weight loss
CPT/HCPCS: 71250; 74150